=== PATIENT | male | born 1945 | race Caucasian/White ===

== ENCOUNTER 2016-11-20 08:30 | Inpatient (IN) | payer BC, MEDICARE ==
--- NOTE | 2016-11-18 11:37 | HP ---
PATIENT: SHEKHAR MORALES MEDICAL RECORD: [id number] ACCOUNT: [id number] LOCATION:[facility] : 47 ADMISSION DATE: 11/20/16 HISTORY AND PHYSICAL EXAMINATION SHEKHAR Sinha (70yo, M) ID# [id number]. Date/Time11/05/2016 10:91OOZLT99/29/1946[facility] Dept.NPP_[facility] ClinicProviderEDLADONNA HERRMANN MDInsuranceMed Primary: [place]) Insurance # : [id number] Employer Name : UNKNOWN Med Secondary: [place] ([place]) Insurance # : [id number] Employer Name : UNKNOWN Prescription: CMX - Member is eligible. Chief Complaint atherosclerosis of arteries of extremities Patient's Care Team Primary Care Provider: BUFFY GONZALEZ MD: [address] [place] [address], , Emissions Testing Technician: KIMBERLEE COVARRUBIAS MD: [address] [address], , Patient's Pharmacies [id number] ([facility] [address] [facility] [address], , Vitals BP:130/80 sitting R arm 11/05/2016 10:05 am 128/80 sitting L arm 11/05/2016 10:05 amHR:66R/R 11/05/2016 10:05 amHt:6 ft 2 in 11/05/2016 10:03 amWt:200 lbs 11/05/2016 10:03 amBMI:25.7 11/05/2016 10:03 amAllergies Reviewed Allergies NKDAMedications Reviewed Medications acetaminophen 300 mg-codeine 30 mg wzqpes67/21/17 filledCaremarkDULoxetine 30 mg capsule,delayed iskppxb55/18/17 filledCaremarkHYDROcodone 10 mg-acetaminophen 325 mg ihvsaf00/18/17 filledCaremarklisinopril 40 mg irmywq94/18/17 filledCaremarklosartan 50 mg gyzijk34/15/17 filledCaremarklovastatin 10 mg rufwrs54/15/17 filledCaremarkmetoprolol tartrate 25 mg dxmhae31/24/17 filledCaremarkProblems Reviewed Problems Atherosclerosis of arteries of the extremities - Onset: 11/05/2016 Family History Discussed Family History Father- Congestive heart failureMother- Malignant tumor of breastSocial History Discussed Social History Cardiology Family history of heart disease?: Y Smoking Status: Current every day smoker High Cholesterol: Y High blood pressure: Y Exercise level: None Surgical History Reviewed Surgical History Other - PTCA/stent HISTORY AND PHYSICAL [id number] SHEKHAR MORALES Other - back Other - shoulder Other - neck Other - deviated septum Other - 02/10/2012 - Cataracts Past Medical History Discussed Past Medical History Angioplasty (balloon): Y Circulation Problems: Y High Blood Pressure: Y Documents for Discussion N/A Screening None recorded. HPI peripheral arterial disease and claudication ROS Patient reports exercise intolerance but reports no fever, no night sweats, no significant weight gain, and no significant weight loss. He reports muscle aches, muscle weakness, arthralgias/joint pain, and back pain but reports no swelling in the extremities. He reports no dry eyes, no irritation, and no vision change. He reports no difficulty hearing and no ear pain. He reports no frequent nosebleeds and no nose/sinus problems. He reports no sore throat, no bleeding gums, no snoring, no dry mouth, no mouth ulcers, no oral abnormalities, and no teeth problems. He reports no jugular vein distension and no swollen glands. He reports no chest pain, no arm pain on exertion, no shortness of breath when w alking, no shortness of breath when lying down, no palpitations, and no known heart murmur. He reports no cough, no wheezing, no shortness of breath, and no coughing up blood. He reports no abdominal pain, no vomiting, normal appetite, no diarrhea, not vo m iting blood, no nausea, and no constipation. He reports no incontinence, no difficulty urinating, no hematuria, and no increased frequency. He reports no abnormal mole, no jaundice, and no rashes. He reports no loss of consciousness, no weakness, no numbn e ss, no seizures, no dizziness, and no headaches. He reports no depression, no sleep disturbances, feeling safe in relationship, and no alcohol abuse. He reports no fatigue. He reports no swollen glands and no bruising. He reports no runny nose, no sinus p ressure, no itching, no hives, and no frequent sneezing. ROS as noted in the HPI Physical Exam Patient is a 70-year-old male. Constitutional: General Appearance healthy-appearing and thin. Level of Distress NAD. Ambulation ambulating normally. Cardiovascular: Apical Impulse not displaced or no thrill. Heart Auscultation normal s1 and s2; no murmurs, rubs, or gallops; and RRR. Arterial Pulses no abdominal aorta bruits, femoral bruits, or popliteal bruits and 2+ bilateral, carotid 2+ bilateral, femoral 2+ b ilateral, popliteal 2+ bilateral, and dorsalis pedis 2+ bilateral. Edema no edema or varicosities. Lungs: Repiratory Effort no dyspnea. Percussion no hyperresonance or dullness or flatness. Auscultation no wheezing, rhonchi, or rales / crackles and breathing sounds normal, good air movement, and CTA except as noted. Abdomen: Bowl Sounds normal. Inspection and Palpation no tenderness, guarding, masses, or rebound tenderness and soft and non-distended. Liver non-tender and no HISTORY AND PHYSICAL [id number] SHEKHAR MORALES hepatomegaly. Spleen non-tender and no splenomegaly. Hernia none palpable. Musculoskeletal System: Gait And Stance normal gait and stance. Digits and Nails normal nails and no cyanosis. Neurologic: Cranial Nerves grossly intact. Reflexes DTRs 2+ bilaterally throughout. Sensation grossly intact. Lymph Nodes: Lymph Nodes no cervical LAD, supraclavicular LAD, axillary LAD, or inguinal LAD. Eyes: Lids and Conjunctivae no discharge or pallor and non-injected. Pupils PERRLA. Cornea grossly intact. EOM EOMI. Lens clear. Sclerae non-icteric. Neck: Neck no masses or enlarged lymph nodes and supple, trachea midline, and carotid bruits (bilateral). Thyroid no enlargement or nodules and non-tender. Skin: Inspection and Palpation no rash, lesions, ulcers, jaundice, or abnormal nevi. Assessment / Plan severe claudication of the lower extremities left worse than the right 1. Atherosclerosis of arteries of the extremities I70.213: Atherosclerosis of [place] arteries of extremities with intermittent claudication, bilateral legs Discussion Notes patient would like femoral-popliteal artery bypass. I have discussed left femoral-popliteal bypass including the expected benefits and risk which included bleeding, infection, stroke, , and the imponderables. He understands all the above and wishes to proceed with a left femoral-popliteal bypass. Need preoperative carotid Doppler study The preoperative venous mapping on the greater saphenous PRICILA HERRMANN MD at 1137 CC: [id number] DICTATION DATE: 11/05/16 1000 MARKETING TEAM LEAD: MARK 11/12/16 1438 PRE IN [facility] [address] [place] [address]
[2016-11-27 09:08] LABS: BASOPHILS 0.2 % (0-2); EOSINOPHILS 2.5 % (0-7); HEMATOCRIT 35.8 % (42.0-54.0); HEMOGLOBIN 11.2 g/dL (13.5-17.5); IMMATURE GRANULOCYTES 0.6 % (0-5); LYMPHOCYTES 27.6 % (15-50); MCHC 31.3 g/dL (31.0-37.0); MCV 92.7 fL (80.0-100.0); MEAN PLATELET VOLUME 11.2 fL (7.4-10.4); NEUTROPHILS 54.1 % (40-80); PLATELET COUNT 133 10x3/uL (130-400); RBC 3.86 10x6/uL (4.20-6.10); RDW 17.2 % (11.5-14.5); WBC 13.3 10x3/uL (4.8-10.8)
[2016-11-27 09:11] LABS: APPEARANCE CLEAR (CLEAR); BILIRUBIN NEGATIVE (NEGATIVE); COLOR YELLOW (YELLOW); GLUCOSE NEGATIVE (NEGATIVE); KETONE NEGATIVE (NEGATIVE); NITRITE NEGATIVE (NEGATIVE); PROTEIN NEGATIVE (NEGATIVE); SPECIFIC GRAVITY 1.015 (1.005-1.020); UROBILINOGEN NORMAL (NORMAL)
[2016-11-27 09:35] LABS: ALBUMIN 3.1 g/dL (3.4-5.0); ALKALINE PHOSPHATASE 65 U/L (46-116); ALT (SGPT) 21 U/L (10-68); BILIRUBIN - TOTAL 0.29 mg/dL (0.2-1.3); CALC OSMOLALITY 284 mosm/kg (275-300); CALCIUM 8.9 mg/dL (8.5-10.1); CARBON DIOXIDE 28.2 mmol/L (21.0-32.0); CHLORIDE - SERUM 105 mmol/L (98-107); GLUCOSE 94 mg/dL (74-106); POTASSIUM - SERUM 4.2 mmol/L (3.5-5.1); PROTEIN - SERUM 7.3 g/dL (6.4-8.2); SODIUM 142 mmol/L (136-145); UREA NITROGEN 17 mg/dL (7-18); eGFR NON AFRICAN AMERICAN 79 mL/min (90-120)
[2016-11-27 09:36] LABS: APTT 30.8 SECONDS (22.8-39.4); INR 1.07 (0.85-1.17); PROTIME 13.7 SECONDS (11.6-15.0)
[2016-11-27] MEDS ORDERED: PERCOCET 7.5/321 TAB PO (11:10)
[2016-11-27] MEDS ORDERED: METOPROLOL TART25 MG PO (11:10)
[2016-11-27] MEDS ORDERED: LOSARTAN POTASS25 MG PO (11:11)
[2016-11-27] MEDS ORDERED: CENTRUM MEN'S1 EACH PO (11:12)
[2016-11-27] MEDS ORDERED: ASPIRIN325 MG PO (11:13)
[2016-11-27] MEDS ORDERED: LOVASTATIN10 MG PO (11:13)
--- NOTE | 2016-11-27 17:40 | HP ---
PATIENT: SHEKHAR MORALES MEDICAL RECORD: [id number] ACCOUNT: [id number] LOCATION:[facility] : 49 ADMISSION DATE: 11/28/16 HISTORY AND PHYSICAL EXAMINATION SHEKHAR Sinha (70yo, M) ID# [id number]. Date/Time11/27/2016 01:48HCCTS81/29/1946[facility] Dept.NPP_[place] [facility] ClinicProviderEDLADONNA HERRMANN MDInsuranceMed Primary: [place] ([place]) Insurance # : [id number] Employer Name : UNKNOWN Med Secondary: [place] (MEDICARE) Insurance # : [id number] Employer Name : UNKNOWN Prescription: CMX - Member is eligible. Chief Complaint Followup: Atherosclerosis of arteries of the extremities PVD preop for L fem pop bypass had venous mapping and carotid dopplers, BECKMAN appt this am Patient's Care Team Primary Care Provider: BUFFY GONZALEZ MD: [address] [place] [address], , Insurance Verification Representative: KIMBERLEE COVARRUBIAS MD: [id number] [place] [address], , Patient's Pharmacies [id number] ([facility]): [address] [facility] [address], , Vitals BP:168/88 sitting R arm 11/27/2016 01:44 pmBP Cuff Size:adult 11/27/2016 01:44 pmHR:96,irregular 11/27/2016 01:45 pmHt:6 ft 2 in 11/27/2016 01:34 pmWt:200 lbs 11/27/2016 01:45 pmNotes:nervous,tired, give out 11/27/2016 01:45 pmBMI:25.7 11/27/2016 01:45 pmAllergies Reviewed Allergies NKDAMedications Reviewed Medications aspirin 325 mg tablet Take 1 tablet(s) every day by oral route.11/27/16 enteredKathy Wilsonlosartan 50 mg /15/17 filledCaremarklovastatin 10 mg /12/17 filledCaremarkmetoprolol tartrate 25 mg /18/17 filledCaremarkmultivitamin tablet Take by oral route.11/27/16 [facility] Problems Limb pain at rest due to atherosclerosis of [place] artery - Onset: 11/27/2016 Atherosclerosis of arteries of the extremities - Onset: 11/05/2016 Family History Discussed Family History Father- Congestive heart failureMother- Malignant tumor of breastSocial History Discussed Social History Cardiology Family history of heart disease?: Y Smoking Status: Current every day smoker High Cholesterol: Y High blood pressure: Y HISTORY AND PHYSICAL [id number] SHEKHAR MORALES Exercise level: None Surgical History Reviewed Surgical History Other - PTCA/stent Other - back Other - shoulder Other - neck Other - deviated septum Other - 02/10/2012 - Cataracts Past Medical History Discussed Past Medical History Angioplasty (balloon): Y Circulation Problems: Y High Blood Pressure: Y Documents for Discussion N/A Screening None recorded. HPI Peripheral Vascular Disease Reported by patient. Location: calf; foot Quality: aching Severity: moderate Duration: has noted for months Onset/Timing: wakes from sleep Context: during walking; at rest Aggravating Factors: walking; sleeping Associated Symptoms: no weakness; no numbness; no paresthesias; no skin discoloration; no fever; feels cold at times to legs and feet wakes from sleep hurts to walk bilateral chronic total occlusion superficial femoral arteries ROS Patient reports exercise intolerance but reports no fever, no night sweats, no significant weight gain, and no significant weight loss. He reports muscle aches, muscle weakness, arthralgias/joint pain, and back pain but reports no swelling in the extremities. He reports no dry eyes, no irritation, and no vision change. He reports no difficulty hearing and no ear pain. He reports no frequent nosebleeds and no nose/sinus problems. He reports no sore throat, no bl eeding gums, no snoring, no dry mouth, no mouth ulcers, no oral abnormalities, and no teeth problems. He reports no jugular vein distension and no swollen glands. He reports no chest pain, no arm pain on exertion, no shortness of breath when walking, no s h ortness of breath when lying down, no palpitations, and no known heart murmur. He reports no cough, no wheezing, no shortness of breath, and no coughing up blood. He reports no abdominal pain, no vomiting, normal appetite, no diarrhea, not vomiting blood, no nausea, and no constipation. He reports no incontinence, no difficulty urinating, no hematuria, and no increased frequency. He reports no abnormal mole, no jaundice, and no rashes. He reports no loss of consciousness, no weakness, no numbness, no seizu r es, no dizziness, and no headaches. He reports no depression, no sleep disturbances, feeling safe in relationship, and no alcohol abuse. He reports no fatigue. He reports no swollen glands and no bruising. He reports no runny nose, no sinus pressure, no i tching, no hives, and no frequent sneezing. ROS as noted in the HPI HISTORY AND PHYSICAL [id number] SHEKHAR MORALES Physical Exam Patient is a 70-year-old male. Constitutional: General Appearance healthy-appearing and thin. Level of Distress NAD. Ambulation ambulating normally. Cardiovascular: Apical Impulse not displaced or no thrill. Heart Auscultation normal s1 and s2; no murmurs, rubs, or gallops; and RRR. Arterial Pulses no abdominal aorta bruits, femoral bruits, or popliteal bruits and 2+ bilateral, carotid 2+ bilateral, femoral 2+ bilateral, po pliteal 2+ bilateral, and dorsalis pedis 2+ bilateral. Edema no edema or varicosities. Lungs: Repiratory Effort no dyspnea. Percussion no hyperresonance or dullness or flatness. Auscultation no wheezing, rhonchi, or rales / crackles and breathing sounds normal, good air movement, and CTA except as noted. Abdomen: Bowl Sounds normal. Inspection and Palpation no tenderness, guarding, masses, or rebound tenderness and soft and non-distended. Liver non-tender and no hepatomegaly. Spleen non-tender and no splenomegaly. Hernia none palpable. Musculoskeletal System: Gait And Stance normal gait and stance. Digits and Nails normal nails and no cyanosis. Neurologic: Cranial Nerves grossly intact. Reflexes DTRs 2+ bilaterally throughout. Sensation grossly intact. Lymph Nodes: Lymph Nodes no cervical LAD, supraclavicular LAD, axillary LAD, or inguinal LAD. Eyes: Lids and Conjunctivae no discharge or pallor and non-injected. Pupils PERRLA. Cornea grossly intact. EOM EOMI. Lens clear. Sclerae non-icteric. Neck: Neck no masses or enlarged lymph nodes and supple, trachea midline, and carotid bruits (bilateral). Thyroid no enlargement or nodules and non-tender. Skin: Inspection and Palpation no rash, lesions, ulcers, jaundice, or abnormal nevi. Assessment / Plan severe peripheral arterial disease with rest pain Chronic total occlusion and superficial femoral arteries bilaterally 1. Limb pain at rest due to atherosclerosis of [place] artery I70.223: Atherosclerosis of [place] arteries of extremities with rest pain, bilateral legs Discussion Notes discussed the patient's disease process with him and his in detail as well as the alternative methods of treatment. We discussed left in situ graft femoral-popliteal bypass including the expected benefits and risk which include bleeding, infection, stroke, and , and the imponderables. He understands all of the above and wishes to proceed with plan surgery HISTORY AND PHYSICAL [id number] SHEKHAR MORALES EDWARD MD at 1740 CC: [id number] DICTATION DATE: 11/27/16 1330 HOTEL CUSTODIAN: MARK 11/27/16 1449 PRE IN [facility] [address] [place] [address]
[2016-11-28] VITALS (22 sets, daily range): BP systolic 110–149; BP diastolic 53–76; BMI 24.5; BMI 24.7
[2016-11-28 13:09] LABS: HEMATOCRIT 32.5 % (42.0-54.0); HEMOGLOBIN 10.2 g/dL (13.5-17.5)
[2016-11-29] VITALS (24 sets, daily range): BP systolic 113–149; BP diastolic 52–86
[2016-11-29 06:33] LABS: HEMOGLOBIN 9.9 g/dL (13.5-17.5); MCH 28.7 pg (26.0-34.0); MCHC 30.9 g/dL (31.0-37.0); MCV 92.8 fL (80.0-100.0); MEAN PLATELET VOLUME 10.8 fL (7.4-10.4); RBC 3.45 10x6/uL (4.20-6.10); RDW 17.6 % (11.5-14.5); WBC 21.9 10x3/uL (4.8-10.8)
[2016-11-29 06:53] LABS: ALBUMIN 2.8 g/dL (3.4-5.0); ALKALINE PHOSPHATASE 57 U/L (46-116); ALT (SGPT) 17 U/L (10-68); BILIRUBIN - TOTAL 0.53 mg/dL (0.2-1.3); CALC OSMOLALITY 279 mosm/kg (275-300); CARBON DIOXIDE 23.1 mmol/L (21.0-32.0); CHLORIDE - SERUM 106 mmol/L (98-107); CREATININE - SERUM 0.9 mg/dL (0.6-1.3); GLUCOSE 94 mg/dL (74-106); POTASSIUM - SERUM 4.2 mmol/L (3.5-5.1); PROTEIN - SERUM 6.7 g/dL (6.4-8.2); SODIUM 140 mmol/L (136-145); UREA NITROGEN 15 mg/dL (7-18); eGFR NON AFRICAN AMERICAN 89 mL/min (90-120)
[2016-11-30] VITALS (12 sets, daily range): BP systolic 104–139; BP diastolic 39–83
[2016-11-30] MEDS ORDERED: ELIQUIS5 MG PO (13:42)
[2016-11-30] MEDS ORDERED: CORDARONE200 MG PO (13:43)
--- NOTE | 2016-12-01 11:08 | CN ---
PATIENT NAME:HENRIQUE MORALES MEDICAL RECORD: [id number] : 49 LOCATION:[facility] ADMIT DATE: 11/28/16 ACCOUNT: [id number] CONSULTING PHYSICIAN: JAREK PEPE MD REFERRING PHYSICIAN: PRICILA HERRMANN MD DATE OF CONSULTATION: 11/29/2016 HISTORY OF PRESENT ILLNESS: Henrique Morales is a 70-year-old gentleman admitted with peripheral arterial disease with Dr. Herrmann, underwent successful revascularization, had atrial fibrillation/atrial flutter with RVR. In retrospect, he has had this for sometime, typically converts by his review and his 's report with vagal maneuvers. We were asked to see him concerning his cardiovascular status. Currently, intermittently in and out, has been appropriately started on NOAC. PAST MEDICAL HISTORY: Includes; 1. History of peripheral vascular disease as described above. 2. Hypertension. 3. Hyperlipidemia. ALLERGIES: None known. MEDICATIONS: Typically include [place] 7.5/325 every 6 hours p.r.n.; aspirin 81 mg p.o. daily; lovastatin 10 mg p.o. daily; losartan 25 every day; atorvastatin 50 every day; metoprolol 25 b.i.d. SOCIAL HISTORY: , lives here in [place]. He is able to take care of his ADLs, although this has become more difficult given his claudication. REVIEW OF SYSTEMS: The patient reports easy bruising but reports no swollen glands. The patient reports no fever, no night sweats, no significant weight gain, no significant weight loss. No significant exercise tolerance. The patient reports no dry eyes, no irritation, no vision change. Patient reports no difficulty hearing and no ear pain. Patient reports no frequent nose bleeds or nose and sinus problems. Patient reports on arm pain on exertion. No shortness of breath while lying down. No history of heart murmur. Patient reports no cough, no wheezing or coughing up blood. Patient reports no abdominal pain, no vomiting. Normal appetite. No diarrhea and not vomiting blood. No nausea and no constipation. Patient reports no incontinence. No difficulty urinating. No hematuria. No increased frequency. Patient reports no muscle aches. No weakness, no arthralgias, no back pain. No swelling of the extremities. Patient reports no abnormal mole, no jaundice, no rashes. Reports no loss of consciousness. No weakness and no numbness. No seizures, dizziness, or headaches. The patient reports no depression, no sleep disturbance, feeling safe in a relationship and no alcohol abuse. Patient reports on fatigue. Reports no runny nose or sinus pressure. No itching, no hives, and no frequent sneezing. PHYSICAL EXAMINATION: GENERAL: Pleasant gentleman in no acute distress. VITAL SIGNS: Pulse currently 120, appears to be flutter, blood pressure 126/74. HEENT: Normocephalic, atraumatic. NECK: No bruits noted. HEART: Tachycardic, regular. LUNGS: Good air excursion. CONSULT REPORT [id number] CARMENHENRIQUE [place] ABDOMEN: Soft, nontender. EXTREMITIES: Pulses palpable. No edema. IMPRESSION: Atrial fibrillation, exacerbated by current surgery, increased catecholamine drive etc. Already started on NOAC. We will continue amiodarone, may be able to down the road switch him to dozy-mk-eke-pocket given his ease of conversion in the past. TRANSINT:[id number] Voice Confirmation ID: [id number] DOCUMENT ID: [id number] JAREK PEPE MD at 1108 CC: [id number] DICTATION DATE: 11/29/16 120 QUILLER TENDER: 11/29/16 1236 DIS IN 11/30/16 [place] [id number] [place] [address]
--- NOTE | 2016-12-04 15:59 | OP ---
PATIENT NAME: SHEKHAR MORALES MEDICAL RECORD: [id number] :49 [facility] ADMISSION DATE:11/28/16 SURGEON: HENOK HERRMANN MD DATE OF OPERATION: 11/28/2016 SURGEON: Henok Herrmann MD ANESTHESIA: General endotracheal, Dr. Huggins. OPERATION PERFORMED: Left femoral popliteal bypass below the knee utilizing a 6-mm Impra graft. PREOPERATIVE DIAGNOSES: Atherosclerosis, total occlusion of the superficial femoral arteries with rest pain bilaterally. FINDINGS OF THE OPERATION: The left saphenous vein was too small to use for grafting. Therefore, an Impra 6mm beaded graft was utilized. The distal target vessel was satisfactory in caliber, diffusely diseased. The inflow was adequate, although the common femoral artery was severely and diffusely diseased. ESTIMATED BLOOD LOSS: Less than 150 mL. DESCRIPTION OF PROCEDURE: After informed consent, adequate preoperative medication evaluation, the patient was brought to the operating room, placed on the table in the supine position. After induction of general endotracheal anesthesia and application of appropriate monitoring devices, the abdomen, both groin and left leg were prepped and draped in a sterile field, utilizing Betadine scrub, alcohol, and Betadine solution. A Betadine-impregnated drape was also used. An incision was made posterior to the tibia below the knee and dissection carried down to the fascia. Hemostasis maintained with electrocautery. The saphenous vein was dissected free of surrounding tissues and attempts to dilate the vessel were unsuccessful in order to increase the size of the vein itself utilizing an olive-tipped needle. Therefore, this was abandoned. An incision was made in the fascia and dissection carried down to the popliteal fossa. The gastroc was retracted posteriorly and the distal popliteal artery dissected free of surrounding tissues and surrounded with a vessel loop. Attention was then turned toward the left groin. An oblique incision was made at the inguinal ligament. Dissection carried down to the fascia. Hemostasis maintained with electrocautery. The inguinal ligament was elevated and the common femoral artery was dissected proximally and distally. A soft area was identified. A 6 mm beaded graft was then tunneled utilizing a Sanjay tunneler and the distal anastomosis trimmed. The patient was given a calculated dose of heparin. The distal popliteal artery was opened and extended with Main scissors. The anastomosis was accomplished end-to-side utilizing a running 6-0 [place] suture. Attention was then turned toward the left groin. The graft was trimmed. The artery clamped and opened in a soft area. The anastomosis was fashioned utilizing running 6-0 [place] suture. All maneuvers to remove trapped air were performed. The clamps were removed sequentially. The patient was given a calculated dose of protamine to reverse the heparin. Hemostasis was assured. The wounds were irrigated with copious amounts of antibiotic solution and normal saline. The instrument counts and sponge counts were correct times 2. Wounds closed in layers utilizing 2-0 Vicryl on deep subcutaneous tissue, 3-0 Vicryl on superficial subcutaneous tissue, skin in groin approximated with 5-0 subcuticular Monocryl. The incision below the knee OPERATIVE REPORT [id number] SHEKHAR MORALES was closed with skin timbo. Sterile dressings were applied. The patient tolerated the procedure well and was transferred to the CV ICU in satisfactory condition. TRANSINT:[id number] Voice Confirmation ID: [id number] DOCUMENT ID: [id number] HENOK HERRMANN MD at 1559 CC: [id number] DICTATION DATE: 11/28/16 1144 SUPERVISOR SUNGLASSES: 11/28/16 1213 DIS IN 11/30/16 [place] [id number] [place] [address]
== END 2016-11-30 14:51 | disposition home or self-care (01) | DRG 253 ==
LOC: D.SDCHOLD 08:30 → D.CVICU 11-28 05:07 → D.SDCHOLD 11-28 05:07 → D.CVICU 11-28 11:30
PROVIDERS: ADMIT Internal Medicine Cardiovascular Disease
PROC: 041L0JL Bypass Left Femoral Artery to Popliteal Artery with Synthetic Substitute, Open Approach (ICD-10-PCS; principal; 2016-11-28 07:30)
DX: I70.222 Atherosclerosis of native arteries of extremities with rest pain, left leg (principal); I70.92 Chronic total occlusion of artery of the extremities; I10 Essential (primary) hypertension; E78.5 Hyperlipidemia, unspecified; I48.0 Paroxysmal atrial fibrillation

== ENCOUNTER 2017-01-04 13:10 | Inpatient (IN) | payer BC, MEDICARE ==
[~2017-01-04] VITALS: Ht 188 cm; Wt 89.8 kg
[~2017-01-04 13:10] MED LIST: ASPIRIN325 MG PO; CENTRUM MEN'S1 EACH PO; CORDARONE200 MG PO; ELIQUIS5 MG PO; LOSARTAN POTASS25 MG PO; LOVASTATIN10 MG PO; METOPROLOL TART25 MG PO; PERCOCET 7.5/321 TAB PO
[2017-01-04 14:16] LABS: BASOPHILS 0.3 % (0-2); EOSINOPHILS 1.3 % (0-7); HEMATOCRIT 36.7 % (42.0-54.0); HEMOGLOBIN 11.3 g/dL (13.5-17.5); IMMATURE GRANULOCYTES 0.9 % (0-5); LYMPHOCYTES 25.1 % (15-50); MCH 29.8 pg (26.0-34.0); MCHC 30.8 g/dL (31.0-37.0); MCV 96.8 fL (80.0-100.0); MEAN PLATELET VOLUME 11.3 fL (7.4-10.4); MONOCYTES 11.6 % (2-11); NEUTROPHILS 60.8 % (40-80); PLATELET COUNT 169 10x3/uL (130-400); RBC 3.79 10x6/uL (4.20-6.10)
[2017-01-04 14:19] LABS: APTT 37.9 SECONDS (22.8-39.4); INR 1.27 (0.85-1.17); PROTIME 15.8 SECONDS (11.6-15.0)
[2017-01-04 14:26] LABS: ALBUMIN 3.4 g/dL (3.4-5.0); ANION GAP 16.1 mmol/L (8-16); BILIRUBIN - TOTAL 0.33 mg/dL (0.2-1.3); CALCIUM 8.6 mg/dL (8.5-10.1); CARBON DIOXIDE 22.3 mmol/L (21.0-32.0); CREATININE - SERUM 1.2 mg/dL (0.6-1.3); POTASSIUM - SERUM 4.4 mmol/L (3.5-5.1); PROTEIN - SERUM 8.2 g/dL (6.4-8.2)
--- NOTE | 2017-01-04 17:40 | NUR ---
NOTIFIED DR. HERRMANN OF CONSULT, LABS, VITAL SIGNS, SYMPTOMS AND VISUAL CONDITION OF LEFT LEG. NEW ORDERS RECEIVED. CT NOTIFIED. WILL BE UP MOMENTARILY FOR PT. AT BEDSIDE STATES PT HAS NO PERSONAL BELONGINGS AND SHE WILL TAKE HIS CLOTHES HOME WITH HER. OUTLINE DRAWN ON LEFT LEG. URINAL PROVIDED. C/L IN REACH.
[2017-01-04] MEDS ORDERED: BREO ELLIPTA 11 EACH INH (17:43)
[2017-01-04 18:00] VITALS: BP 154/78
--- NOTE | 2017-01-04 18:13 | NUR ---
SPOKE WITH DR. DEE. WILL BE UP TO ASSESS PT SHORTLY.
--- NOTE | 2017-01-04 18:30 | NUR ---
TO C.T. VIA WHEELCHAIR. PAIN REASSESSMENT TIMED FOR [address] AT 1830.
[2017-01-04 19:00] VITALS: BP 166/70
--- NOTE | 2017-01-04 19:08 | NUR ---
SPOKE WITH DR. GARDINER CONCERNING CONSULT. ROOM NUMBER GIVEN.
--- NOTE | 2017-01-04 19:35 | NUR ---
REPORT REC'D AND CARE ASSUMED, REC'D PT RETURNING FROM CT, ALL MONITORS REESTABLISHED, AT BS, LEFT A/C PIV SALINE LOCKED, CM-SB @ 54, BP 165/76, LEFT UPPER INNER THIGH SWOLLEN AND FIRM TO TOUCH, AREA PREVIOUSLY MARKED BY AM SHIFT, FIRMNESS EXTENDS DOWN CALF, PULSES BY DOPPLER, PT ON ROOM AIR ,O2 SAT 95%, PT COMPLAINS OF BEING HUNGRY, INFORMED PT A SANDWICH TRAY WOULD BE PROVIDED CLAUDE, PREFERS TO SIT UP ON SIDE OF BED AT THIS TIME, PT STATES " I CAN'T LAY DOWN RIGHT NOW", BED IN LOW POSITION, CALL LIGHT IN REACH.
--- NOTE | 2017-01-04 19:40 | NUR ---
DR. DEE ON UNIT, NEW ORDERS REC'D.
--- NOTE | 2017-01-04 19:55 | NUR ---
LEAK HUNTER NOTIFIED OF NEED FOR MEDS.
[2017-01-04 20:00] VITALS: BP 143/72; BP 147/71; Ht 188 cm; Wt 89.8 kg
--- NOTE | 2017-01-04 20:30 | NUR ---
SANDWICH TRAY PROVIDED WITH ICE WATER, DILAUDID MANAGER GENERATION SET UP FOR PT USE, PT AT FIRST WANTED TO REFUSE MANAGER GENERATION, STATES " IT IS A WASTE OF TIME, I WILL SET HERE AND HURT" THEY GAVE ME ONE OF THOSE FOR MY SHOULDER YEARS AGO AND IT DIDN'T WORK", EXPLAINED TO PT THE MEDICATION WAS MORE THAN LIKELY DIFFERENT THAN WHAT WAS USED YEARS AGO, PT WILLING TO TRY MANAGER GENERATION AND LET NURSE KNOW IF INEFFECTIVE.
--- NOTE | 2017-01-04 20:45 | NUR ---
PT CONSUMED 75% OF SANDWICH TRAY REMAINS SETTING UP, BLANKET PROVIDED FOR COMPLAINTS OF BEING COLD, REMAINS AT BS, PT DENIES FURTHER NEEDS.
[2017-01-04 21:00] VITALS: BP 118/66
--- NOTE | 2017-01-04 21:30 | NUR ---
EVENING MEDS GIVEN, AMIODARONE HELD AT THIS TIME FOR HR OF 54, BP STABLE, PT LYING IN BED, PROVIDED PILLOWS AND ATTEMPTED TO ELEVATED PT'S LEG PER MD ORDER, PT REFUSES, STATES " MY HURTS TO BAD RIGHT NOW"
[2017-01-04 22:00] VITALS: BP 105/48
[2017-01-04 23:00] VITALS: BP 147/82
--- NOTE | 2017-01-04 23:00 | NUR ---
PT RESTING ON LEFT SIDE IN BED, EYES CLOSED, RESP EVEN AND UNLABORED, VSS, WILL CONT TO MONITOR FOR CHANGES.
[2017-01-05] VITALS (13 sets, daily range): BP systolic 108–179; BP diastolic 46–93
--- NOTE | 2017-01-05 01:40 | NUR ---
PT RESTING ON SIDE EYES CLOSED, RESP EVEN AND UNLABORED, VSS, CM-CAF @ RATE 43 AT TIMES WHILE SLEEPING, WILL MONITOR CLOSELY FOR CHANGES.
--- NOTE | 2017-01-05 02:30 | NUR ---
PT AWAKE, SITTING UP ON SIDE OF BED, BLANKET PROVIDED FOR SHOULDERS, COMPLAINS OF LEFT LEG FEELING TIGHT REMAINS SWOLLEN AND WARM TO THE TOUCH, PT CONTINUES TO USE DILAUDID POWER TONG OPERATOR WHEN ASKED ABOUT PAIN RATING STATES " IT STILL HURTS", ENCOURAGED PT TO ELEVATE LEG, PT SHOOK HEAD NO, CALL LIGHT IN REACH.
--- NOTE | 2017-01-05 03:00 | NUR ---
REASSESSMENT COMPLETE, NO CHANGES FROM PREVIOUS ASSESSMENT, LEFT INNER THIGH REMAINS SWOLLEN AND FIRM TO TOUCH, PT DENIES NEEDS, CALL LIGHT IN REACH.
--- NOTE | 2017-01-05 04:45 | NUR ---
LAB AT FOR AM LAB DRAW.
--- NOTE | 2017-01-05 05:11 | NUR ---
PT SITTING ON SIDE OF BED, REQUESTING COFFEE, COFFEE PROVIDED, VSS, PT DENIES NEEDS.
[2017-01-05 05:17] LABS: BASOPHILS 0.2 % (0-2); HEMATOCRIT 34.7 % (42.0-54.0); HEMOGLOBIN 10.7 g/dL (13.5-17.5); IMMATURE GRANULOCYTES 0.8 % (0-5); LYMPHOCYTES 22.4 % (15-50); MCH 29.4 pg (26.0-34.0); MCHC 30.8 g/dL (31.0-37.0); MCV 95.3 fL (80.0-100.0); MEAN PLATELET VOLUME 10.5 fL (7.4-10.4); MONOCYTES 18.8 % (2-11); NEUTROPHILS 55.8 % (40-80); PLATELET COUNT 152 10x3/uL (130-400); RBC 3.64 10x6/uL (4.20-6.10); RDW 20.4 % (11.5-14.5); WBC 9.9 10x3/uL (4.8-10.8)
[2017-01-05 05:40] LABS: ALBUMIN 3.2 g/dL (3.4-5.0); BILIRUBIN - TOTAL 0.39 mg/dL (0.2-1.3); CALCIUM 8.5 mg/dL (8.5-10.1); CHOL - HDL RATIO 3.4 ratio (2.3-4.9); CREATININE - SERUM 1.1 mg/dL (0.6-1.3); LDL-HDL RATIO 1.8 ratio (1.5-3.5); MAGNESIUM - SERUM 2.1 mg/dL (1.8-2.4); PHOSPHOROUS 4.4 mg/dL (2.5-4.9); PROTEIN - SERUM 7.8 g/dL (6.4-8.2); THYROID STIMULATING HORMONE 14.06 uIU/mL (0.36-3.74)
--- NOTE | 2017-01-05 06:20 | NUR ---
AM MEDS GIVEN ORDERED, PT DENIES FURTHER NEEDS, NO VISITORS IN AT THIS TIME.
--- NOTE | 2017-01-05 07:30 | NUR ---
RECEIVED PT FOR CARE. PT SITTING UP ON SIDE OF BED. CALL LIGHT WITHIN REACH. ASSESSMENT COMPLETED.
--- NOTE | 2017-01-05 09:15 | NUR ---
DR. GARDINER AT BEDSIDE. UPDATED ON PT'S STATUS.
--- NOTE | 2017-01-05 10:10 | NUR ---
* Is the patient Alert and Oriented? Yes 0 * How many steps to enter\exit or inside your home? 4 0 * PCP Dr. Jennifer Butt 0 * Pharmacy [facility] 0 * Preadmission Environment Home with Family 0 * ADLs Independent 0 * Equipment Rolling Walker 0 * List name and contact numbers for known caregivers / representatives who currently or will assist patient after discharge: Spouse - Ginette [phone] 0 * Additional services required to return to the preadmission environment? No 0 * Can the patient safely return to the preadmission environment? Yes 0 * Has this patient been hospitalized within the prior 30 days at any hospital? No Patient Name: SHEKHAR MORALES Admission Status: ER Accout number: [id number] Admission Date: 01-04-2017 : 1945 Admission Diagnosis: Attending: HARSHAD ALARCON Current LOS: 1 Planned Disposition: Home Primary Insurance: [employer] [facility] Discharge Planning Comments: CM met with patient to assess DC plans/needs. Patient states he lives at home with his , Ginette. He reports he is independent with all ADL's & IADL's. He does not use any DME but does have a walker should he need it. He denies having home health services. At dc, he plans to return home with his family. No needs identified or verbalized at this time. CM will follow. Paving Supervisor: Caitlin House
--- NOTE | 2017-01-05 11:46 | NUR ---
AUTOMOBILE MECHANIC RADIATOR AT BEDSIDE.
--- NOTE | 2017-01-05 12:22 | NUR ---
PT REFUSING BED BATH AT THIS TIME. REQUESTING THAT HE TAKE A SHOWER WHEN HE HAS HIS OUT ON THE FLOOR.
--- NOTE | 2017-01-05 12:36 | NUR ---
PT TRANSPORTED BY WHEELCHAIR TO ROOM 2121. PT REPORTS HE WILL CALL HIS AND NOTIFY HER OF NEW ROOM NUMBER. PT HAS CELL PHONE IN HAND. REPORTS ALL CLOTHING IN BAG AND WITH PT DURING TRANSPORT.
--- NOTE | 2017-01-05 12:45 | NUR ---
RECEIVED PT TO ROOM VIA W/C GENERALIZED WEAKNESS RESP UNLABORED SALINE LOCK NOTED TO LAC WITH OCCLUSIVE DRSG INTACT SITE FREE OF REDNESS OR EDEMA TELEMETRY APPLIED SINUS JEANNIE RATE 53
--- NOTE | 2017-01-05 20:36 | NUR ---
PT RESTING IN BED. ALERT/ORIENTED. [place]ING[place]. SALINE LOCK TO LEFT A/C. BEDTIME MEDS GIVEN. IV ABT ZOSYN UP AND INFUSING. INSTRUCTED TO CALL IF HE NEEDS ASSIST TO BATHROOM. CPOC.
--- NOTE | 2017-01-05 23:30 | NUR ---
RESTING WITH NO DISTRESS. 2ND IV ABT UP AND INFUSING. CAF PER TELEMETRY.
--- NOTE | 2017-01-06 00:54 | NUR ---
C/O LEG PAIN. LOWER BACK PAIN, MEDICATED WITH PERCOCETT 1.5 TAB AND WILL MONITOR.
[2017-01-06 00:55] VITALS: BP 138/72
--- NOTE | 2017-01-06 03:11 | NUR ---
PT WITH INCREASE IN HEART RATE TO 130'S ST PER MONITOR. WENT TO ROOM TO CHECK PATIENT AND HE WAS UP IN BATHROOM WITH HIS IV POLE CAUGHT ON THE DOOR. ASSISTED PT BACK TO BED AND HE SAID HE "GOT A BIT FRANTIC" FOR A MINUTE WHEN HIS POLE GOT STUCK. DENIES CHEST PAIN OR DISCOMFORT. AMBULATED BACK TO BED WITH NO ISSUES. TELEMETRY NOW SHOWING 90'S FIB. WILL MONITOR.
[2017-01-06 05:12] LABS: BASOPHILS 0.2 % (0-2); EOSINOPHILS 2.1 % (0-7); HEMATOCRIT 34.2 % (42.0-54.0); HEMOGLOBIN 10.7 g/dL (13.5-17.5); IMMATURE GRANULOCYTES 0.8 % (0-5); LYMPHOCYTES 21.1 % (15-50); MCH 29.6 pg (26.0-34.0); MCHC 31.3 g/dL (31.0-37.0); MCV 94.7 fL (80.0-100.0); MEAN PLATELET VOLUME 10.6 fL (7.4-10.4); NEUTROPHILS 60.8 % (40-80); PLATELET COUNT 177 10x3/uL (130-400); RBC 3.61 10x6/uL (4.20-6.10); RDW 20.2 % (11.5-14.5); WBC 9.1 10x3/uL (4.8-10.8)
[2017-01-06 05:22] LABS: CALC OSMOLALITY 275 mosm/kg (275-300); CALCIUM 8.4 mg/dL (8.5-10.1); CARBON DIOXIDE 24.9 mmol/L (21.0-32.0); CHLORIDE - SERUM 103 mmol/L (98-107); GLUCOSE 98 mg/dL (74-106); POTASSIUM - SERUM 3.6 mmol/L (3.5-5.1); SODIUM 138 mmol/L (136-145); UREA NITROGEN 13 mg/dL (7-18); eGFR NON AFRICAN AMERICAN 79 mL/min (90-120)
[2017-01-06 05:35] VITALS: BP 132/71
--- NOTE | 2017-01-06 06:41 | NUR ---
UP AND AMBULATING ON UNIT. DRINKING COFFEE. AM MEDS GIVEN. PT IN GOOD SPIRITS. FEELS HIS LEFT LEG IS GREATLY IMPROVING WITH DECREASING IN FLUID OVERLOAD. CPOC. REPORT TO JUAN MIGUEL MARTIN.
--- NOTE | 2017-01-06 07:15 | NUR ---
ASSESSMENT COMPLETED. DENIES ANY NEEDS. TELEMERTY SHOWS SR. NPO FOR TEST. IV PATENT TO LEFT FOREARM. WILL MONITOR
[2017-01-06 08:42] VITALS: BP 155/75
--- NOTE | 2017-01-06 09:20 | NUR ---
BACK TO ROOM FROM TINSMITH APPRENTICE. TELEMERTY SHOWS SR V/S STABLE. RIGHT GROIN SOFT WITH DRSG DRY AND INTACT. PPP. IV TO LEFT AC WITH NS. SR UP WITH FAMILY AT BEDSIDE.
--- NOTE | 2017-01-06 11:00 | NUR ---
UP IN BEDSIDE CHAIR WITH FEET ELEVATED.DENIES ANY DISCOMFORT. LEFT LEG WITH LESS EDEMA. WILL MONITOR
[2017-01-06 12:09] VITALS: BP 154/87
[2017-01-06] MEDS ORDERED: BACTRIM DS TABL1 TAB PO (13:31)
--- NOTE | 2017-01-06 13:46 | NUR ---
PT DISCHARGED. IV DCD WITH TIP INTACT. INSTRUCTIONS GIVEN TO PT. TO PRIVATE CAR PER WHEELCHAIR
--- NOTE | 2017-01-20 12:14 | EC ---
PATIENT:SHEKHAR MORALES DATE OF SERVICE: 01/04/17 SEX: M MEDICAL RECORD: [id number] DATE OF : [birth year] LOCATION:D.M2 D.212 AGE OF PATIENT: 71 ADMISSION DATE: 01/04/17 REFERRING PHYSICIAN: INTERPRETING PHYSICIAN: KIMBERLEE SANTIAGO MD ECHOCARDIOGRAM REPORT ECHO CHARGES 4 ECHO COMPLETE CLINICAL DIAGNOSIS: CHF/A-FIB ECHOCARDIOGRAPHIC MEASUREMENTS (adult normal given) AC root (d.<3.7cm) 3.6 cm LV Septum d (<1.2 cm> 1.6 cm Valve Excursion 2.1 cm LV Septum (systole) 2.3 cm Left Atria (s.<4.0cm> 4.1 cm LVPW d(<1.2cm) 1.3 cm RV (d.<2.3cm) 3.5 cm LVPW (sytole) 1.9 cm LV diastole(<5.6CM) 6.1 cm MV E-F(>70mm/sec) cm LV systole 3.4 cm LVOT Diameter 2.0 cm MV exc.(>10mm) cm Est.ejection fraction (50-75%) % Pericardial Effusion N DOPPLER: LVIT cm/sec A 35.0 cm/sec E 130 cm/sec LA cm/sec RVSP 44.0 mmHg LVOT 124 cm/sec AOP1/2T m/s Asc. Ao 163 cm/sec RVOT 69.0 cm/sec RA cm/sec PA 103 cm/sec AV Gradient Peak 11.0 mmHg AV Mean 5.5 mmHg AV Area 2.3 cm MV Gradient Peak 7.7 mmHg MV Mean 1.9 mmHg MV Area cm COMMENTS: Duplex Trimmer: Kathleen ORLANDOOE Card Cleaner: 1 Dr. Santiago TAPE# PACS DATE OF SERVICE: 01/05/2017 DATE OF SERVICE: 01/05/2017 ECHOCARDIOGRAM FINDINGS: 1. Left ventricular chamber size is within normal limits. Left ventricular systolic function is mildly reduced. Overall ejection fraction is 40% to 45%. 2. Left atrium is enlarged at 4.1 cm. Right atrium and right ventricular ECHOCARDIOGRAM REPORT [id number] SHEKHAR MORALES chamber sizes are as well mildly dilated. 3. Valvular structures have normal structure and motion. 4. Doppler interrogation reveals mild mitral regurgitation, mild tricuspid regurgitation, no other valvular insufficiency or stenosis. Pulmonary systolic pressure is estimated at 44 mmHg. 5. No evidence of pericardial effusion or left ventricular thrombus. TRANSINT:[id number] Voice Confirmation ID: [id number] DOCUMENT ID: [id number] KIMBERLEE SANTIAGO MD at 1214 CC: [id number] DICTATION DATE: 01/05/17 1226 MICROFILM EQUIPMENT INSPECTOR: 01/05/17 1303 DIS IN 01/06/17 [address] [place] [address]
--- NOTE | 2017-01-20 12:14 | CN ---
PATIENT NAME:SHEKHAR MORALES MEDICAL RECORD: [id number] : [birth year] LOCATION:[facility] D.2122 ADMIT DATE: 01/04/17 ACCOUNT: [id number] CONSULTING PHYSICIAN: KIMBERLEE GARDINER MD REFERRING PHYSICIAN: HARSHAD DEE MD DATE OF CONSULTATION: 01/05/2017 CARDIOLOGY CONSULT DIAGNOSES: 1. Bradycardia. 2. Paroxysmal atrial fibrillation. 3. Sick sinus syndrome. 4. Anticoagulation, Eliquis, for atrial fibrillation. 5. Peripheral vascular disease. 6. Hypertension. 7. Hyperlipidemia. HISTORY: This is a gentleman who presents with lower extremity pain. He is status post fem-pop few weeks ago on the lower extremity. He began having some pain and hardness of the leg. The leg is not really swollen and not too edematous. CTA showed wide patency of the graft and severe disease distally in both legs. He does have history of atrial fibrillation, this is paroxysmal. He was on Lopressor. He had the addition of Cordarone to his medical regimen on last admission. He has now had some episodes of bradycardia. Heart rate is down into the high 30s; but with this, he is not hemodynamically compromised and is asymptomatic. PHYSICAL EXAMINATION: GENERAL APPEARANCE: Well-nourished, well-developed, appears stated age. Level of distress, comfortable. PSYCHIATRIC: Mental status, alert, normal affect. Orientation, oriented to time, place and person. EYES: Lids and conjunctiva, noninjected. No discharge, no pallor. ENT: Lips, teeth, gums, normal dentition. Oropharynx, no cyanosis, no pallor. NECK: Carotid arteries, bilateral normal upstroke, no bruits, no thrills. JUGULAR VEINS: No jugular venous pressure or distention. CERVICAL LYMPH NODES: Nontender, nonenlarged. THYROID: Not enlarged. Nontender. No nodules. LUNGS: Respiratory effort, unlabored. CHEST: Normal curvature. No thoracic deformity. No chest wall tenderness. Percussion, resonant. Auscultation, clear. No wheezes, no rales, no rhonchi. CARDIOVASCULAR: Precordial exam, nondisplaced. No heaves or pericardial thrills. Rate and rhythm, regular. Heart sounds, normal S1, normal S2. No S3, no gallop, no rub. Systolic murmur, not heard. Diastolic murmur, not heard. EXTREMITIES: No cyanosis, no edema. Peripheral pulses, full and equal in all extremities, except as noted. No bruits appreciated. ABDOMEN: Soft, nondistended. Normal aorta. No bruit. Nontender. No masses. Liver, nontender, no hepatomegaly. Spleen, nontender, no splenomegaly. MUSCULOSKELETAL: No joint tenderness. No joint swelling. No erythema. NEUROLOGICAL: Normal gait, normal strength, normal tone. SKIN: Warm and dry. OVERALL IMPRESSION: He is going in and out of atrial fibrillation. This is not new. We will continue the Cordarone at 200 b.i.d. Discontinue the metoprolol. CONSULT REPORT [id number] SHEKHAR MORALES If this resolves bradycardia, no other workup or treatment is necessary from a cardiac standpoint. Continue the Eliquis anticoagulation. TRANSINT:[id number] Voice Confirmation ID: [id number] DOCUMENT ID: [id number] KIMBERLEE GARDINER MD at 1214 CC: [id number] DICTATION DATE: 01/05/1739 COTTON GRADER: 01/05/17 1159 DIS IN 01/06/17 [id number] [place] [address]
== END 2017-01-06 13:48 | disposition home or self-care (01) | DRG 602 ==
LOC: D.ER 13:10 → D.CVICU 16:03 → D.M2 16:03
PROVIDERS: Emergency Medicine; Family Medicine; ADMIT Family Medicine Adult Medicine
DX: L03.116 Cellulitis of left lower limb (principal); J18.9 Pneumonia, unspecified organism; I48.0 Paroxysmal atrial fibrillation; Z79.01 Long term (current) use of anticoagulants; I70.223 Atherosclerosis of native arteries of extremities with rest pain, bilateral legs; I10 Essential (primary) hypertension; E78.5 Hyperlipidemia, unspecified; Z72.0 Tobacco use

== ENCOUNTER 2017-02-26 06:52 | Outpatient (CLI) | payer BC, MEDICARE ==
[~2017-02-26] VITALS: Ht 188 cm; Wt 90.9 kg
--- NOTE | ~2017-02-26 | HEMODYNAMI ---
PATIENT:SHEKHAR MORALES MEDICAL RECORD: [id number] : [birth year] LOCATION:[facility] ADMISSION DATE: 02/26/17 Generatedon:02/26/201710:39 Patient name: SHEKHAR MORALES Patient #: [id number] SSN: [id number] : 1945 Date of study: 02/26/2017 Page: Of Hemodynamic Procedure Report Patient Data Patient Demographics Procedure consent was obtained First Name: SHEKHAR Gender: Male Last Name: CARMEN : 1945 Middle Initial: M Age: 71 year(s) Patient #: [id number] Race: SSN: [id number] Additional ID: [id number] Contact details [address]: [address] [place] [address] State: [place] City: [place] Zip code: [address] Admission Admission Data Admission Date: 02/26/2017 Admission Time: 6:52 Arrival Date: 02/26/2017 Arrival Time: 9:00 Admit Source: Other Insurance Payor: Private health insurance Lab Results Lab Result Date: 02/26/2017 Lab Result Time: 0:00 Biochemistry Name Units Result Min Max BUN mg/dl 20 --(----)*- 7 18 Creatinine mg/dl 1.2 --(---*)-- 0.6 1.3 CBC Name Units Result Min Max Hemoglobin g/dl 13.4 -*(----)-- 13.5 17.5 Procedure Procedure Types Cath Procedure Diagnostic Procedure PPM/ICD PPM Dual Implant Miscellaneous Procedures Moderate Sedation up to 45 minutes Peripheral Cath Diagnostic Procedure Venography Extremity Left Upper Ext. Venagram Procedure Description Procedure Date Procedure Date: 02/26/2017 Procedure Start Time: 10:03 Procedure Staff Name Function Parker Breaux MD Performing Physician Mary Anne Pineda RT Monitor Alyssa Cavazos RT Scrub Feliberto Alexander RN Nurse Procedure Data Cath Procedure Fluoroscopy Diagnostic fluoroscopy Total fluoroscopy Time: 2.1 time: 2.1 min min Diagnostic fluoroscopy Total fluoroscopy dose: dose: 44.64 mGy 44.64 mGy Contrast Material Contrast Material Type Amount (ml) Visipaque 270 20 Estimated blood loss: 5 ml Procedure Complications No complications Procedure Medications Medication Administration Route Dosage 0.9% NaCl I.V. 100 ml/hr Ancef (1Gm/50ml NS) I.V.P.B 1 g Ancef Irrigation Topical 1 g (1gm/500ml NS) Oxygen NC 2 l/min Lidocaine 1% added to field 20 Lidocaine 1% added to field 20 Versed I.V. 2 mg Fentanyl I.V. 25 mcg Versed I.V. 2 mg Fentanyl I.V. 25 mcg Fentanyl I.V. 50 mcg Versed I.V. 1 mg Amiodarone Loading I.V. drip 150 mg Dose (150mg/100ml D5W) Hemodynamics Rest Heart Rate: 104 (bpm) Snapshots Pre Cath Intra NCS Post Cath Vital Signs Time Heart Resp SPO2 etCO2 NIBP (mmHg) Rhythm Pain Sedation Rate (ipm) (%) (mmHg) Status Level (bpm) 9:50:14 95 16 98 0 142/99(120) A-Flutter 0 (11) 10(A) , No pain 9:54:32 106 42 99 4.5 139/93(119) A-Flutter 0 (11) 10(A) , No pain 9:58:50 93 22 98 24.3 150/99(116) A-Flutter 0 (11) 10(A) , No pain 10:03:02 94 20 98 25.1 142/99(120) A-Flutter 0 (11) 10(A) , No pain 10:07:24 90 17 97 23.5 129/94(110) A-Flutter 0 (11) 10(A) , No pain 10:11:36 103 20 95 2.2 130/93(112) A-Flutter 0 (11) 10(A) , No pain 10:15:48 102 17 94 0 130/93(115) A-Flutter 0 (11) 9(A) , No pain 10:20:00 84 18 94 1.5 137/97(115) A-Flutter 0 (11) 9(A) , No pain 10:24:06 102 24 95 25.1 127/96(113) A-Flutter 0 (11) 10(A) , No pain 10:28:15 104 22 94 22.8 131/96(113) A-Flutter 0 (11) 9(A) , No pain 10:32:25 87 18 95 28.1 135/100(112) A-Flutter 0 (11) 10(A) , No pain Medications Time Medication Route Dose Verified Delivered Reason Notes Effecti veness by by 9:55:04 0.9% NaCl I.V. 100 Feliberto Feliberto Per ml/hr Catherine Alexander physician RN RN 9:55:25 Ancef I.V.P.B 1 g Feliberto Feliberto Per (1Gm/50ml Catherine Alexander physician NS) RN RN 9:56:46 Ancef Topical 1 g Feliberto Feliberto used for Irrigation Lorigan Lorigan procedure (1gm/500ml RN RN NS) 9:57:59 Oxygen NC 2 Feliberto Feliberto Per l/min Catherine Alexander physician RN RN 9:58:16 Lidocaine 1% added 20ml Feliberto Feliberto for local to vial Lorigan Lorigan anesthetic field RN RN 9:58:20 Lidocaine 1% added 20ml Feliberto Feliberto for local to vial Lorigan Lorigan anesthetic field RN RN 10:00:03 Versed I.V. 2 mg Feliberto Feliberto for Lorigan Lorigan sedation RN RN 10:00:41 Versed I.V. 2 mg Feliberto Feliberto for Lorigan Lorigan sedation RN RN 10:05:10 Fentanyl I.V. 25 Feliberto Feliberto for mcg Lorigan Lorigan sedation RN RN 10:05:55 Fentanyl I.V. 25 Feliberto Feliberto for mcg Lorigan Lorigan sedation RN RN 10:26:32 Fentanyl I.V. 50 Feliberto Feliberto for mcg Lorigan Lorigan sedation RN RN 10:30:13 Versed I.V. 1 mg Feliberto Feliberto for Lorigan Lorigan sedation RN RN 10:30:29 Amiodarone I.V. 150 Feliberto Feliberto for Loading Dose drip mg Lorigan Lorigan arrhythmia (150mg/100ml RN RN D5W) Procedure Log Time Note 9:32:22 Feliberto Alexander RN sent for patient. Start room use. 9:32:23 Time tracking: Regular hours 9:32:26 Plan of Care:Hemodynamics will remain stable., Cardiac rhythm will remain stable., Comfort level will be maintained., Respiratory function will remain adequate., Patient/ family verbilizes understanding of procedure., Procedure tolerated without complication., Recovers from procedure without complications.. 9:34:57 Informed consent obtained and on chart 9:35:02 Admit Source: Other 9:35:05 Arrival Date: 02/26/2017 9:00:00 AM 9:35:11 Insurance Payor : Private health insurance 9:36:56 Lab Result : Hemoglobin 13.4 g/dl 9:36:56 Lab Result : Creatinine 1.2 mg/dl 9:36:56 Lab Result : BUN 20 mg/dl 9:38:30 Medtronic Advisa MRI PPM Dual Generator [id number] opened to sterile field. 9:39:37 Medtronic 4074-58 PPM Lead opened to sterile field. 9:40:33 Medtronic 5076-52 PPM Lead opened to sterile field. 9:41:19 Use device set CATH PACK 9:41:34 Use device set NORRED PPM 9:41:41 2.0 Silk 685H opened to sterile field. 9:41:41 2-0 Vicryl Plus [id number] opened to sterile field. 9:41:46 Cautery Tip Business Center Attendant opened to sterile field. 9:41:47 Cautery Pushbutton Pencil opened to sterile field. 9:41:49 Stapler Skin 35W Proximate Plus (PMW35) opened to sterile field. 9:41:51 MICROPUNCTURE 4FR Cook ([id number]) opened to sterile field. 9:42:01 Microlaunchers Cath Pack ([id number]) opened to sterile field. 9:42:27 Patient received from Pre/Post Procedure Room to CCL 3 Alert and oriented. Tansferred to table in Supine position. 9:42:28 Warm blankets applied, and abhilash hugger turned on for patient comfort. 9:42:28 Correct patient and procedure confirmed by team. 9:42:29 ECG and BP/O2 sat monitors applied to patient. 9:49:06 Vital chart was started 9:49:07 Full Disclosure recording started 9:55:04 0.9% NaCl 100 ml/hr I.V. was administered by Feliberto Alexander RN; Per physician; 9:55:25 Ancef (1Gm/50ml NS) 1 g I.V.P.B was administered by Feliberto Alexander RN; Per physician; 9:56:46 Ancef Irrigation (1gm/500ml NS) 1 g Topical was administered by Feliberto Alexander RN; used for procedure; 9:56:59 Baseline sample Acquired. 9:57:15 H&P Date Dictated: 02/23/2017 Within 30 days and on chart., H&P Addendum completed by physician on day of procedure. (MUST COMPLETE FOR ALL OUTPATIENTS). 9:57:17 Pre-procedure instructions explained to patient. 9:57:17 Pre-op teaching completed and patient verbalized understanding. 9:57:19 Family in waiting room. 9:57:20 Patient NPO since Midnight. 9:57:59 Oxygen 2 l/min NC was administered by Feliberto Alexander RN; Per physician; 9:58:00 Is the patient allergic to Iodine/contrast media? No. 9:58:01 Was the patient premedicated? No 9:58:02 Is patient on blood thinner?Yes 9:58:16 Lidocaine 1% 20ml vial added to field was administered by Feliberto Alexander RN; for local anesthetic; 9:58:20 Lidocaine 1% 20ml vial added to field was administered by Feliberto Alexander RN; for local anesthetic; 9:58:26 Eliquis taken last thursday 9:58:28 Patient diabetic? No. 9:58:31 Previous problem with sedation/anesthesia? No ? 9:58:32 Snore? No 9:58:34 Sleep apnea? No 9:58:35 Deviated septum? No 9:58:36 Opens mouth fully? Yes 9:58:36 Sticks out tongue? Yes 9:58:40 Airway obstruction? Yes copd 9:58:49 Dentures? Yes in tight 9:58:52 Pre procedure: right dorsailis pedis pulse 2+ Normal; easily identifiable; not easily obliterated 9:58:55 Pre procedure: left dorsailis pedis pulse 2+ Normal; easily identifiable; not easily obliterated 9:58:56 Patient pain scale 0/10 ?. 9:59:03 IV patent on arrival in right antecubital with 0.9% NaCl at O. 9:59:07 Lab results completed and on chart. 9:59:15 Left chest area was prepped with chlora-prep and draped in sterile fashion 9:59:15 Alarms reviewed by R. N. 9:59:16 Sharps counted by scrub and verified by R.N. 9:59: Physician arrived :59: --------ALL STOP TIME OUT------ 9:59: Final Timeout: patient, procedure, and site verified with staff and physician. All members of the team are in agreement. 9:59:31 Left chest site verified by team. 9:59:34 Physical assessment completed. ASA score P 2 - A patient with mild systemic disease as per Parker Breaux MD. 9:59:37 Sedation plan: IV Moderate Sedation Medication:Versed, Fentanyl 9:59:50 Medtronic veterans employment representative Shahab Graf present for procedure. 10:00:03 Versed 2 mg I.V. was administered by Feliberto Alexander RN; for sedation; 10:00:04 Grounding pad site Right thigh. 10:00:05 Grounding pad site free from injury. 10:00:41 Versed 2 mg I.V. was administered by Feliberto Alexander RN; for sedation; 10:03:04 Pre sharps counted by scrub and verified by RN: Sutures: 9; Sponges: 5; Stick needles: 2; Skin needles: 2; Blade: 1; Cautery: 1 10:03:20 Lidocaine 1% w/epi was administered to left subclavicular area by Parker Breaux MD . 10:03:23 Incision made to left subclavicular area. 10:05:10 Fentanyl 25 mcg I.V. was administered by Feliberto Alexander RN; for sedation; 10:05:55 Fentanyl 25 mcg I.V. was administered by Feliberto Alexander RN; for sedation; 10:07:35 Generator pocket made/opened. 10:13:37 Access obtained with 4Fr micropunture. 10:13:55 Left subclavian vein accessed with 7Fr Peel Away Sheath. 10:15:41 20 ccs of visipaque given by Mary Anne Pineda RT 10:17:05 Ventricular lead inserted and advanced. 10:17:07 Atrial lead inserted and advanced. 10:17:15 Ventricular lead positioned. 10:17:18 Peel-a-way sheath was split and removed. 10:18:15 Ventricular lead attachment was completed with 2-0 vicryl. 10:19:05 Atrial lead positioned. 10:19:09 Peel-a-way sheath was split and removed. 10:19:16 Atrial lead attachment was completed with 2-0 vicryl. 10:20:39 PPM Dual was attached to lead(s) and inserted into pocket. 10:20:42 Device pocket was irrigated with Ancef. 10::32 Fentanyl 50 mcg I.V. was administered by Feliberto Alexander RN; for sedation; 10:26:47 Subcutaneous closure was completed with 2-0 silk. 10::57 Skin closure was completed with 35mm [place]. 10:28:38 Parameters-- Generator: Mode: DDDR. Lower Rate: 60bpm. Upper Rate: 120bpm. 10:29:07 Parameters--Ventricular P/R Wave: 10.5mV. Current: 0.20mA; Threshold: 0.3V; Impedence: 1289OHMS. 10:29:54 Parameters--Atrial P/R Wave: 3.1mV. Current: 0mA; Threshold: FLUTTERV; Impedence: 628OHMS. 10:30:13 Versed 1 mg I.V. was administered by Feliberto Alexander RN; for sedation; 10:30:29 Amiodarone Loading Dose (150mg/100ml D5W) 150 mg I.V. drip was administered by Feliberto Alexander RN; for arrhythmia; 10:30:43 Procedure ended.(Physican Out) 10:30:52 Fluoroscopy time 02.10 minutes. 10::57 Fluoroscopy dose: 44.64 mGy 10:30:57 Flurop Dose total: 44.64 10:31:02 Contrast amount:Visipaque 270 20ml. 10:31:04 Sharps counted by scrub and verified by R.N. 10:31:05 Insertion/operative site no bleeding no hematoma. 10:31:14 Post-op/insertion site Left Chest area dressed using a gauze eyepad and tegaderm. 10:31:24 Post Procedure Pulses reassessed and unchanged 10:31:30 Post procedure rhythm: paced 10:31:32 Estimated blood loss: 5 ml 10:31:34 Post procedure instruction explained to patient.Patient verbalizes understanding. 10:31:34 Patient needs reinforcement of post procedure teaching. 10:32:18 Procedure type changed to Cath procedure, Diagnostic procedure, PPM/ICD, PPM Dual Implant, Miscellaneous Procedures, Moderate Sedation up to 45 minutes, Peripheral Cath Diagnostic Procedure, Venography, Extremity, Left Upper Ext. Venagram 10:32:19 Procedure and supply charges have been captured, reviewed, submitted and are correct. 10:32:24 Procedure Complication : No complications 10:32:27 Vital chart was stopped 10:32:27 See physician's report for complete and final results. 10:32:57 Report given to Pre/Post Procedure Room. 10:32:59 Patient transfered to Pre/Post Procedure Room with Stretcher. 10:33:08 End room use (Document Last) Device Usage Item Name Manufacture Quantity Catalog Hospital Part Current Minimal Lot# / Number Charge Number Stock Stock Serial# Code Medtronic Medtronic 1 [id number] [id number] 5 [id number] Advisa MRI EXP PPM Dual 06-22-18 Generator [id number] Medtronic Medtronic 1 4074-58 022077 [id number] 5 [id number] 4074-58 PPM EXP Lead 11-11-18 Medtronic Medtronic 1 5076-52 365630 232440 5 [id number] 5076-52 PPM EXP Lead 09-08-18 2.0 Silk 685H Ethicon 1 685H 827571 21000 [id number] 5 2-0 Vicryl Ethicon 1 [id number] 711505 544231 127193 5 Plus [id number] Cautery Tip Microtek 1 [id number] 967166 857500 079869 5 Business Center Attendant [employer] Cautery Microtek 1 [id number] 150176 05904 044074 5 Pushbutton [employer] Inc. Pencil Stapler Skin Unknown 1 PMW35 257109 960359 900907 5 35W Proximate Plus (PMW35) MICROPUNCTURE ThoughtLeadr Medical 1 [id number] 194676 552860 [id number] 5 4FR ThoughtLeadr ([id number]) Medline Cath Cardinal 1 [id number] 876577 32317 428141 5 Axentra ([id number]) Signature Audit [place] Stage Time Signature Unsigned Intra-Procedure 02/26/2017 Mary Anne Pineda 10:39:37 AM RT(R) Signatures Monitor : Mary Anne Pineda RT Signature : Date : Time : [address] [place] [address]
[~2017-02-26 06:52] MED LIST changes: +BACTRIM DS TABL1 TAB PO; +BREO ELLIPTA 11 EACH INH
[2017-02-26 07:29] VITALS: Ht 188 cm; Wt 90.9 kg
[2017-02-26 07:36] LABS: HEMATOCRIT 41.3 % (42.0-54.0); HEMOGLOBIN 13.4 g/dL (13.5-17.5); MCH 31.3 pg (26.0-34.0); MCHC 32.4 g/dL (31.0-37.0); MCV 96.5 fL (80.0-100.0); MEAN PLATELET VOLUME 10.8 fL (7.4-10.4); RBC 4.28 10x6/uL (4.20-6.10); RDW 17.1 % (11.5-14.5)
[2017-02-26 07:45] LABS: APTT 32.6 SECONDS (22.8-39.4); INR 1.17 (0.85-1.17); PROTIME 14.5 SECONDS (11.6-15.0)
[2017-02-26 07:55] LABS: ANION GAP 15.2 mmol/L (8-16); CALCIUM 9.4 mg/dL (8.5-10.1); CARBON DIOXIDE 25.3 mmol/L (21.0-32.0); CREATININE - SERUM 1.2 mg/dL (0.6-1.3); POTASSIUM - SERUM 4.5 mmol/L (3.5-5.1)
[2017-02-26] MEDS ORDERED: KEFLEX500 MG PO (10:35)
== END 2017-02-26 16:00 | disposition home or self-care (01) ==
LOC: D.CATH 06:52
PROVIDERS: Internal Medicine Cardiovascular Disease
DX: I49.5 Sick sinus syndrome (principal); Z01.812 Encounter for preprocedural laboratory examination

== ENCOUNTER 2017-03-27 06:00 | Outpatient (CLI) | payer BC, MEDICARE ==
[~2017-03-27] VITALS: Ht 188 cm; Wt 90.9 kg
--- NOTE | ~2017-03-27 | HEMODYNAMI ---
PATIENT:SHEKHAR MORALES MEDICAL RECORD: [id number] : 49 LOCATION:[facility] ADMISSION DATE: 03/27/17 Generatedon:03/27/20178:13 Patient name: SHEKHAR MORALES Patient #: [id number] SSN: [id number] : 1945 Date of study: 03/27/2017 Page: Of Hemodynamic Procedure Report Patient Data Patient Demographics Procedure consent was obtained First Name: SHEKHAR Gender: Male Last Name: CARMEN : 1945 Middle Initial: M Age: 71 year(s) Patient #: [id number] Race: SSN: [id number] Additional ID: [id number] Contact details Address: [address] [place] [address] State: [place] City: [place] Zip code: [address] Past Medical History Allergies: No known allergies Admission Admission Data Admission Date: 03/27/2017 Admission Time: 6:00 Height (in.): 6.2 BSA: 0.36 (m2) Height (cm.): 15.75 BMI: 3658.01 (kg/m2) Weight (lbs.): 200 Weight (kg.): 90.72 Lab Results Lab Result Date: 03/27/2017 Lab Result Time: 0:00 Biochemistry Name Units Result Min Max BUN mg/dl 26 --(----)-* 7 18 Creatinine mg/dl 1.2 --(---*)-- 0.6 1.3 CBC Name Units Result Min Max Hemoglobin g/dl 11.3 *-(----)-- 13.5 17.5 Procedure Procedure Types Cath Procedure Diagnostic Procedure Cardioversion Procedure Description Procedure Date Procedure Date: 03/27/2017 Procedure Start Time: 7:59 Procedure End Time: 8:12 Procedure Staff Name Function Dorene Higuera RT Monitor Parker Breaux MD Performing Physician Eduard Gillis RN Nurse Navdeep Kauffman RN Dye Winch Operator Procedure Data Procedure Complications No complications Procedure Medications Medication Administration Route Dosage Versed I.V. 2 mg Fentanyl I.V. 25 mcg Versed I.V. 2 mg Oxygen NC 2 l/min Hemodynamics Rest BSA: 0.36 (m2) O2 Consumption: Estimated: 43.82 (ml/min) O2 Consumption indexed: Estimated:121.72 (ml/min/m) Heart Rate: 85 (bpm) Snapshots Pre Cath Intra NCS Post Cath Vital Signs Time Heart Resp SPO2 etCO2 NIBP (mmHg) Rhythm Pain Sedation Rate (ipm) (%) (mmHg) Status Level (bpm) 7:55:12 85 29 98 0 149/96(121) A-Fib 0 (11) 10(A) , No pain 7:59:57 76 18 93 0 157/89(109) A-Fib 0 (11) 9(A) , No pain 8:04:37 71 18 100 0 123/80(96) Paced 0 (11) 9(A) , No pain 8:09:16 75 17 97 0 134/80(120) Paced 0 (11) 10(A) , No pain Medications Time Medication Route Dose Verified Delivered Reason Notes Effectivene ss by by 7:56:12 Versed I.V. 2 mg Parker Buffie for Saeid Gillis RN sedation 7:56:18 Fentanyl I.V. 25 Parker Buffie for mcg Saeid Gillis RN sedation 8:00:23 Versed I.V. 2 mg Parker Buffie for Saeid Gillis RN sedation 8:08:44 Oxygen NC 2 Parker Buffie Per l/min Saeid Gillis RN physician Procedure Log Time Note 7:46:01 Patient Height : 6.2 inches 7:46:06 Patient Weight : 200 lbs 7:48:10 Navdeep Kauffman RN sent for patient. Start room use. 7:48:11 Time tracking: Regular hours 7:48:15 Plan of Care:Hemodynamics will remain stable., Cardiac rhythm will remain stable., Comfort level will be maintained., Respiratory function will remain adequate., Patient/ family verbilizes understanding of procedure., Procedure tolerated without complication., Recovers from procedure without complications.. 7:48:20 Signed procedure consent form obtained from patient. 7:49:10 H&P Date Dictated: 03/26/2017 Within 30 days and on chart., H&P Addendum completed by physician on day of procedure. (MUST COMPLETE FOR ALL OUTPATIENTS). 7:49:57 Patient allergic to No known allergies 7:50:59 Patient received from Pre/Post Procedure Room to CCL 1 Alert and oriented. Tansferred to table in Supine position. 7:51:00 Warm blankets applied, and abhilash hugger turned on for patient comfort. 7:51:00 Correct patient and procedure confirmed by team. 7:51:10 ECG and BP/O2 sat monitors applied to patient. 7:51:26 Pre-procedure instructions explained to patient. 7:51:26 Pre-op teaching completed and patient verbalized understanding. 7:51:29 Family in patients room. 7:51:30 Patient NPO since Midnight. 7:51:33 Is the patient allergic to Iodine/contrast media? No. 7:51:34 Is patient on blood thinner?Yes 7:51:39 ACC The patient was administered the following blood thiners within the last 24 hours: Eliquis 7:51:41 Patient diabetic? No. 7:51:43 Previous problem with sedation/anesthesia? No ? 7:51:45 Snore? Yes 7:51:46 Sleep apnea? No 7:51:47 Deviated septum? No 7:51:54 Opens mouth fully? Yes 7:51:55 Sticks out tongue? Yes 7:52:04 Airway obstruction? Yes COPD 7:52:13 Dentures? Yes IN TIGHT 7:52:56 IV patent on arrival in left wrist with 0.9% NaCl at KVO. 7:53:57 Quick Combo opened to sterile field. 7:54:18 Vital chart was started 7:54:52 Lab Result : BUN 26 mg/dl 7:54:52 Lab Result : Hemoglobin 11.3 g/dl 7:54:52 Lab Result : Creatinine 1.2 mg/dl 7:54:55 Lab results completed and on chart. 7:55:00 Baseline sample Acquired. 7:55:05 Rhythm: atrial fibrillation 7:55:06 Full Disclosure recording started 7:55:09 Alarms reviewed by R. N. 7:55:10 Sharps counted by scrub and verified by R.N. 7:55:12 --------ALL STOP TIME OUT------ 7:55:12 Final Timeout: patient, procedure, and site verified with staff and physician. All members of the team are in agreement. 7:55:22 Physical assessment completed. ASA score P 2 - A patient with mild systemic disease as per Parker Breaux MD. 7:55:25 Sedation plan: IV Moderate Sedation Medication:Versed, Fentanyl 7:56:12 Versed 2 mg I.V. was administered by Eduard Gillis RN; for sedation; 7:56:18 Fentanyl 25 mcg I.V. was administered by Eduard Gillis RN; for sedation; 7:56:42 Quick combo pads placed on patients chest and back. 7:59:21 Procedure started. 8:00:23 Versed 2 mg I.V. was administered by Eduard Gillis RN; for sedation; 8:04:48 Defibrillator synced and charged to 200 Joules. 8:04:56 Shock delivered. 8:05:48 Patient cardioverted to paced. 8:07:28 Procedure ended.(Physican Out) 8:07:43 Post-procedure physical assessment completed. ASA score P 2 - A patient with mild systemic disease as per Parker Breaux MD. 8:07:47 Post procedure rhythm: paced 8:07:50 Post procedure instruction explained to patient.Patient verbalizes understanding. 8:07:50 Patient needs reinforcement of post procedure teaching. 8:08:44 Oxygen 2 l/min NC was administered by Eduard Gillis RN; Per physician; 8:11:24 Procedure and supply charges have been captured, reviewed, submitted and are correct. 8:11:26 Procedure Complication : No complications 8:12:29 Vital chart was stopped 8:12:30 See physician's report for complete and final results. 8:12:33 Report given to Pre/Post Procedure Room. 8:12:35 Patient transfered to Pre/Post Procedure Room with Bed. 8:12:39 Procedure ended. 8:12:39 Full Disclosure recording stopped 8:12:43 End room use (Document Last) Device Usage Item Manufacture Quantity Catalog Hospital Part Current Minimal Lot# / Name Number Charge Number Stock Stock Lois eric# Code PointAcross 1 [id number] Combo Signature Audit Harvel Stage Time Signature Unsigned Intra-Procedure 03/27/2017 Dorene Higuera 8:13:44 AM RT(R) Signatures Monitor : Dorene Higuera Signature : RT Date : Time : [address] [place] [address]
[~2017-03-27 06:00] MED LIST changes: +KEFLEX500 MG PO
[2017-03-27 06:45] VITALS: BP 139/87; Ht 188 cm; Wt 90.9 kg
[2017-03-27 06:47] LABS: BASOPHILS 0.2 % (0-2); EOSINOPHILS 1.3 % (0-7); HEMATOCRIT 35.4 % (42.0-54.0); HEMOGLOBIN 11.3 g/dL (13.5-17.5); IMMATURE GRANULOCYTES 4.7 % (0-5); MCH 30.5 pg (26.0-34.0); MCHC 31.9 g/dL (31.0-37.0); MCV 95.4 fL (80.0-100.0); MEAN PLATELET VOLUME 10.9 fL (7.4-10.4); MONOCYTES 18.6 % (2-11); NEUTROPHILS 49.2 % (40-80); PLATELET COUNT 143 10x3/uL (130-400); RBC 3.71 10x6/uL (4.20-6.10); RDW 16.1 % (11.5-14.5); WBC 12.6 10x3/uL (4.8-10.8)
[2017-03-27 06:50] LABS: ANION GAP 16.2 mmol/L (8-16); CALCIUM 8.5 mg/dL (8.5-10.1); CARBON DIOXIDE 22.4 mmol/L (21.0-32.0); CREATININE - SERUM 1.2 mg/dL (0.6-1.3); POTASSIUM - SERUM 4.6 mmol/L (3.5-5.1)
[2017-03-27 07:07] LABS: INR 1.32 (0.85-1.17); PROTIME 15.9 SECONDS (11.6-15.0)
== END 2017-03-27 09:30 | disposition home or self-care (01) ==
LOC: D.CATH 06:00
PROVIDERS: Internal Medicine Cardiovascular Disease
DX: I48.92 Unspecified atrial flutter (principal); I25.10 Atherosclerotic heart disease of native coronary artery without angina pectoris; R06.00 Dyspnea, unspecified; Z01.812 Encounter for preprocedural laboratory examination

== ENCOUNTER → 2017-08-03 09:07 | Outpatient (CLI) | payer BC, MEDICARE ==
[2017-03-27 06:45] VITALS: BMI 25.7
--- NOTE | ~2017-08-03 | EC ---
PATIENT:SHEKHAR MORALES DATE OF SERVICE: 08/03/17 SEX: M MEDICAL RECORD: [id number] DATE OF : 49 LOCATION:[facility] AGE OF PATIENT: 71 ADMISSION DATE: 08/03/17 REFERRING PHYSICIAN: INTERPRETING PHYSICIAN: MARC JAUREGUI MD ECHOCARDIOGRAM REPORT ECHO CHARGES 4 ECHO COMPLETE Date: 08/03 CLINICAL DIAGNOSIS: AFIB/BRADYCARDIA HX OF PACEMAKER ECHOCARDIOGRAPHIC MEASUREMENTS (adult normal given) AC root (d.<3.7cm) 3.8 cm LV Septum d (<1.2 cm> 1.6 cm Valve Excursion 2.0 cm LV Septum (systole) 1.7 cm Left Atria (s.<4.0cm> 3.6 cm LVPW d(<1.2cm) 1.6 cm RV (d.<2.3cm) 5.2 cm LVPW (sytole) 1.7 cm LV diastole(<5.6CM) 5.4 cm MV E-F(>70mm/sec) cm LV systole 3.9 cm LVOT Diameter 2.0 cm MV exc.(>10mm) 1.7 cm Est.ejection fraction (50-75%) % DOPPLER: LVIT cm/sec A 92.0 cm/sec E 138 cm/sec LA cm/sec RVSP 44 mmHg LVOT 109 cm/sec AOP1/2T m/s Asc. Ao 179 cm/sec RVOT 90 cm/sec RA cm/sec PA 117 cm/sec AV Gradient Peak 12.86mmHg AV Mean 5.68 mmHg AV Area 1.9 cm MV Gradient Peak 10.10mmHg MV Mean 3.10 mmHg MV Area cm COMMENTS: House Calls Nurse: Julia VERA Infrastructure Engineer: Rosio Jauregui TAPE# PACS Pericardial Effusion N DATE OF SERVICE: 08/03/2017 PROCEDURE: Transthoracic echocardiogram. FINDINGS: 1. Left ventricle has mild left ventricular hypertrophy. Inflow characteristics are normal. Ejection fraction is 50% to 55%. Left atrium is normal. 2. The aortic valve is normal. 3. The mitral valve has mild mitral regurgitation. ECHOCARDIOGRAM REPORT [id number] SHEKHAR MORALES 4. Tricuspid valve has mild tricuspid regurgitation. 5. The right ventricle is mildly dilated. 6. The pulmonic valve is normal. CONCLUSIONS: The patient has evidence of mild left ventricular hypertrophy, otherwise normal echocardiogram for stated age. TRANSINT:[id number] Voice Confirmation ID: [id number] DOCUMENT ID: [id number] MARC JAUREGUI MD at 0927 CC: [id number] DICTATION DATE: 08/04/17 0824 OPTIMIZATION ANALYST: 08/04/17 1241 DEP CLI 08/03/17 [place] [id number] [place] [address]
== END | disposition home or self-care (01) ==
LOC: D.ECHO 07-30 10:35
DX: I48.91 Unspecified atrial fibrillation (principal); R00.1 Bradycardia, unspecified

== ENCOUNTER 2017-11-19 19:42 | Emergency (ER) | payer BC, MEDICARE ==
[~2017-11-19] VITALS: Ht 188 cm; Wt 90.7 kg
[2017-11-19 19:49] VITALS: Ht 188 cm; Wt 90.7 kg
[2017-11-19] MEDS ORDERED: SLOW RELEASE I160 MG PO (19:52)
[2017-11-19] MEDS ORDERED: LEVOXYL50 MCG PO (19:52)
[2017-11-19 21:20] LABS: HEMATOCRIT 34.6 % (42.0-54.0); HEMOGLOBIN 11.1 g/dL (13.5-17.5); MCH 31.4 pg (26.0-34.0); MCHC 32.1 g/dL (31.0-37.0); MEAN PLATELET VOLUME 11.3 fL (7.4-10.4); PLATELET COUNT 155 10x3/uL (130-400); RBC 3.53 10x6/uL (4.20-6.10); RDW 15.5 % (11.5-14.5); WBC 41.8 10x3/uL (4.8-10.8)
[2017-11-19 21:22] LABS: ALBUMIN 2.7 g/dL (3.4-5.0); ANION GAP 18.5 mmol/L (8-16); BILIRUBIN - TOTAL 0.96 mg/dL (0.2-1.3); CALCIUM 8.7 mg/dL (8.5-10.1); CARBON DIOXIDE 22.5 mmol/L (21.0-32.0); CREATININE - SERUM 1.4 mg/dL (0.6-1.3); PROTEIN - SERUM 7.6 g/dL (6.4-8.2)
[2017-11-19 21:45] LABS: LYMPHOCYTES 5 % (15-50); MONOCYTES 4 % (2-11); NEUTROPHILS 85 % (40-80); PLATELET ESTIMATE NORMAL
[2017-11-19 22:43] LABS: AMYLASE - SERUM 29 U/L (25-115); LIPASE 69 U/L (73-393)
[2017-11-19 23:28] LABS: APPEARANCE CLEAR (CLEAR); BILIRUBIN NEGATIVE (NEGATIVE); COLOR DK YELLOW (YELLOW); GLUCOSE NEGATIVE (NEGATIVE); KETONE NEGATIVE (NEGATIVE); NITRITE NEGATIVE (NEGATIVE); PROTEIN NEGATIVE (NEGATIVE); UROBILINOGEN NORMAL (NORMAL)
[2017-11-20 00:17] VITALS: BP 158/84
== END 2017-11-20 00:21 | disposition home or self-care (01) ==
LOC: D.ER 19:42
PROVIDERS: Emergency Medicine
DX: M54.5 Low back pain (principal); D72.829 Elevated white blood cell count, unspecified; L72.9 Follicular cyst of the skin and subcutaneous tissue, unspecified; I10 Essential (primary) hypertension; Z95.0 Presence of cardiac pacemaker; I48.91 Unspecified atrial fibrillation; I73.9 Peripheral vascular disease, unspecified; I25.10 Atherosclerotic heart disease of native coronary artery without angina pectoris; F17.200 Nicotine dependence, unspecified, uncomplicated

== ENCOUNTER 2017-11-27 17:39 | Inpatient (IN) | payer BC, MEDICARE ==
[2017-11-27] VITALS (21 sets, daily range): BP systolic 75–105; BP diastolic 54–95; BMI 25.1
[~2017-11-27] VITALS: Ht 188 cm; Wt 109.7 kg
--- NOTE | ~2017-11-27 | CN ---
PATIENT NAME:SHEKHAR MORALES MEDICAL RECORD: [id number] : 49 LOCATION:[facility] ADMIT DATE: 11/27/17 ACCOUNT: [id number] CONSULTING PHYSICIAN: MONSE KILPATRICK MD REFERRING PHYSICIAN: JEFFY IVEY MD DATE OF CONSULTATION: 11/29/2017 CONSULT REQUESTING PHYSICIAN: Dr. Gurjit MD REASON FOR CONSULTATION: Acute hypoxic respiratory failure. HISTORY OF PRESENT ILLNESS: Mr. Morales is a 71-year-old gentleman who has a history of chronic lymphocytic leukemia. He was admitted initially to [facility] after a fall. He had a cardiac echo, which showed a valvular vegetation and the blood culture grew Gram-positive cocci. He was transferred for advanced care. The culture grew group B strep and also the wound culture was growing Gram-positive cocci and Group B strep. He was on vancomycin and Zosyn. The Zosyn was discontinued to Rocephin. He is still on vancomycin. Last night, the patient went into respiratory distress and metabolic acidosis with a bicarbonate of 16.1. The patient was put on BiPAP as well as started on bicarb drip. The patient is still very weak and lethargic and having severe dyspnea on mild exertion. REVIEW OF SYSTEMS: The detail is not obtainable. PAST MEDICAL HISTORY: 1. Congestive heart failure. 2. Hypertension. 3. Atrial fibrillation. 4. Heart murmur. 5. Coronary artery disease. 6. Peripheral vascular disease. 7. Possible COPD. PAST SURGICAL HISTORY: 1. He has a cataract surgery. 2. Cervical spine fusion surgery. 3. Lumber shoulder stent placement. 4. Status post pacemaker placement. 5. He has a left leg surgery. ALLERGIES: There are no known drug allergy. MEDICATIONS: [employer] is reviewed. PERSONAL AND SOCIAL HISTORY: The patient is still current every day smoker. He is a nondrinker. FAMILY HISTORY: Noncontributory. PHYSICAL EXAMINATION: GENERAL: Now, the patient is lying comfortably. The patient is in mild distress. He is on BiPAP machine. VITAL SIGNS: The BiPAP setting is 16 x 8, oxygen 40%, heart rate is 74, temperature is 98.5, T-max was 100. CONSULT REPORT [id number] SHEKHAR MORALES HEENT: Conjunctiva is pale. Sclerae are not icteric. NECK: Supple, no JVD. CHEST: There are bilateral crackles. No wheezing. HEART: Rate and rhythm regular, normal sound. There is heart murmur. ABDOMEN: Soft, bowel sounds present. No hepatosplenomegaly. RECTAL: Deferred. EXTREMITIES: No cyanosis, no clubbing, 1+ pedal edema. CENTRAL NERVOUS SYSTEM: The patient is awake and alert. He is hard of hearing. LABORATORY DATA: CBC: The WBC is 84.9, hemoglobin is 8.6, hematocrit 26.7, the platelet count is 100,000. Chemistry: Sodium 142, potassium 4.8, bicarb is 20.5, BUN is 81, creatinine 2.3. ABG: yesterday the pH of 7.45, pCO2 of 22.7, the pO2 is 63, the bicarbonate is 16.1; today the pH is 7.45, the pCO2 is 28, the pO2 is 74, bicarbonate 19.7. IMPRESSION: 1. Acute hypoxic respiratory failure. 2. Acute bacterial endocarditis. 3. Septic shock. 4. Multilobar pneumonia. 5. Chronic lymphocytic leukemia. 6. Ruguj-fe-bvoagmw renal failure. 7. Metabolic acidosis secondary to lactic acidosis. 8. Left leg infection, possible graft infection. 9. Anemia. RECOMMENDATION: 1. Continue vancomycin and Rocephin IV. Discussed with Dr. Costa. 2. BiPAP as required. 3. Bicarbonate drip. 4. Continue pressor to keep the systolic blood pressure above 90. 5. Supplemental oxygen to keep the SpO2 above 92%. 6. Start him on albuterol/ipratropium nebulizer. 7. Brovana/budesonide nebulizer. 8. Start him on small dose of methylprednisolone IV. 9. Follow up labs and chest radiograph. Discussed with Dr. Pratt, Dr. Hartman and Dr. Costa. Discussed with the family. We will intubate if the patient is going to respiratory distress. Dr. Victoria, thank you for involving me in the care of Mr. Morales. TRANSINT:[id number] Voice Confirmation ID: [id number] DOCUMENT ID: [id number] MONSE KILPATRICK MD CC: YOHANA VICTORIA MD [id number] DICTATION DATE: 11/29/171428 OPHTHALMOLOGY ASSISTANT: 11/30/17137 ADM IN [place] [address] [place] [id number]
--- NOTE | ~2017-11-27 | CN ---
PATIENT NAME:SHEKHAR MORALES MEDICAL RECORD: [id number] : 49 LOCATION:[facility] ADMIT DATE: 11/27/17 ACCOUNT: [id number] CONSULTING PHYSICIAN: KIMBERLEE GARDINER MD REFERRING PHYSICIAN: JEFFY IVEY MD DATE OF CONSULTATION: 11/29/2017 DIAGNOSES: 1. Endocarditis. 2. Tachycardia. 3. Atrial fibrillation. 4. Mitral regurgitation. HISTORY OF PRESENT ILLNESS: Mr. Morales was transferred here due to sepsis, felt to be secondary to a leg wound after an arterial revascularization surgery. Echocardiogram shows mitral valve endocarditis. He was with atrial fibrillation and was given Cordarone. Initially, it was changed to sotalol. He is now in sinus rhythm. He does still remain on pressors for his sepsis. PHYSICAL EXAMINATION: GENERAL APPEARANCE: Well-nourished, well-developed, appears stated age. Level of distress, comfortable. PSYCHIATRIC: Mental status, alert, normal affect. Orientation, oriented to time, place and person. EYES: Lids and conjunctiva, noninjected. No discharge, no pallor. ENT: Lips, teeth, gums, normal dentition. Oropharynx, no cyanosis, no pallor. NECK: Carotid arteries, bilateral normal upstroke, no bruits, no thrills. JUGULAR VEINS: No jugular venous pressure or distention. CERVICAL LYMPH NODES: Nontender, nonenlarged. THYROID: Not enlarged. Nontender. No nodules. LUNGS: Respiratory effort, unlabored. CHEST: Normal curvature. No thoracic deformity. No chest wall tenderness. Percussion, resonant. Auscultation, clear. No wheezes, no rales, no rhonchi. CARDIOVASCULAR: Precordial exam, nondisplaced. No heaves or pericardial thrills. Rate and rhythm, regular. Heart sounds, normal S1, normal S2. No S3, no gallop, no rub. Systolic murmur, not heard. Diastolic murmur, not heard. EXTREMITIES: No cyanosis, no edema. Peripheral pulses, full and equal in all extremities, except as noted. No bruits appreciated. ABDOMEN: Soft, nondistended. Normal aorta. No bruit. Nontender. No masses. Liver, nontender, no hepatomegaly. Spleen, nontender, no splenomegaly. MUSCULOSKELETAL: No joint tenderness. No joint swelling. No erythema. NEUROLOGICAL: Normal gait, normal strength, normal tone. SKIN: Warm and dry. OVERALL IMPRESSION: 1. Atrial fibrillation. This is controlled in sinus rhythm on sotalol. We will decrease the dose to 80 mg b.i.d. as he is becoming somewhat bradycardic. 2. Endocarditis. Transesophageal echo was not needed. He clearly has mitral valve endocarditis on transthoracic echo, treat accordingly. TRANSINT:[id number] Voice Confirmation ID: [id number] DOCUMENT ID: [id number] CONSULT REPORT [id number] SHEKHAR MORALES, KIMBERLEE KWOK at 1914 CC: [id number] DICTATION DATE: 11/29/17 1259 OUTSIDE MACHINIST SUPERVISOR: 11/30/17 0013 DIS IN 11/30/17 [facility] [address] [place] [address]
--- NOTE | ~2017-11-27 | EC ---
PATIENT:SHEKHAR MORALES DATE OF SERVICE: 11/27/17 SEX: M MEDICAL RECORD: [id number] DATE OF : 49 LOCATION:[facility] AGE OF PATIENT: 71 ADMISSION DATE: 11/27/17 REFERRING PHYSICIAN: INTERPRETING PHYSICIAN: KIMBERLEE SANTIAGO MD ECHOCARDIOGRAM REPORT ECHO CHARGES 4 ECHO COMPLETE Date: 11/28/17 CLINICAL DIAGNOSIS: ENDOCARDITIS ECHOCARDIOGRAPHIC MEASUREMENTS (adult normal given) AC root (d.<3.7cm) 3.6 cm LV Septum d (<1.2 cm> 1.4 cm Valve Excursion 2.1 cm LV Septum (systole) 2.1 cm Left Atria (s.<4.0cm> 4.3 cm LVPW d(<1.2cm) 1.3 cm RV (d.<2.3cm) 2.8 cm LVPW (sytole) 2.0 cm LV diastole(<5.6CM) 5.3 cm MV E-F(>70mm/sec) cm LV systole 2.8 cm LVOT Diameter 2.0 cm MV exc.(>10mm) cm Est.ejection fraction (50-75%) % DOPPLER: LVIT cm/sec A cm/sec E 160 cm/sec LA cm/sec RVSP 47.0 mmHg LVOT 104 cm/sec AOP1/2T m/s Asc. Ao 176 cm/sec RVOT cm/sec RA cm/sec PA cm/sec AV Gradient Peak 12.4 mmHg AV Mean 6.0 mmHg AV Area 1.8 cm MV Gradient Peak 16.0 mmHg MV Mean 6.8 mmHg MV Area cm COMMENTS: Multifocal Lens Inspector: Kathleen DIAZ [place] [employer] Residential Service Technician: 1 Dr. Santiago TAPE# PACS Pericardial Effusion Y DATE OF SERVICE: 11/28/2017 FINDINGS: 1. Left ventricular chamber size is upper limits of normal. Left ventricular systolic function is mild to moderately reduced. Overall ejection fraction in the 35% range. 2. Left atrium is enlarged at 4.3 cm. Right atrium and right ventricular chamber sizes are upper limits of normal. 3. Valvular structures: Aortic valve is most likely a bicuspid valve that has normal structure and function. No evidence of endocarditis. The mitral valve, ECHOCARDIOGRAM REPORT [id number] SHEKHAR MORALES however, has a vegetation on the posterior leaflet compatible with endocarditis. The remaining valvular structures have normal structure and motion. 4. Doppler interrogation reveals [id number] mitral regurgitation, moderate tricuspid regurgitation. No other valvular insufficiency or stenosis. Pulmonary systolic pressure is estimated 47 mmHg. 5. No evidence of pericardial effusion or left ventricular thrombus. TRANSINT:[id number] Voice Confirmation ID: [id number] DOCUMENT ID: [id number] KIMBERLEE SANTIAGO MD at 7774 CC: [id number] DICTATION DATE: 11/28/17 1147 SLAB WORKER: 11/28/17 1411 DIS IN 11/30/17 [facility] [address] [place] [address]
--- NOTE | ~2017-11-27 | OP ---
PATIENT NAME: SHEKHAR MORALES MEDICAL RECORD: [id number] :49 LOCATION:[facility]14 ADMISSION DATE:11/27/17 SURGEON: ORVILLE LIM MD DATE OF OPERATION: 11/30/2017 PREOPERATIVE DIAGNOSES: 1. Septic shock. 2. Profound hypotension. POSTOPERATIVE DIAGNOSES: 1. Septic shock. 2. Profound hypotension. PROCEDURE: Placement of right common femoral arterial line for hemodynamic monitoring. SURGEON: Orville Lim MD DATA PROCESSING MANAGER: None. BLOOD LOSS: Minimal. ANESTHESIA: Local. OPERATIVE COURSE: The patient was seen in his ICU bed. I was in the intensive care unit. Attempts had been made by Dr. Hinton to place an arterial line. He asked that I try to place the line. I did not feel pulse due to the significant hypotension the patient was having. The right wrist was sterilely prepped and draped. Under ultrasonographic guidance, I was unable to access what appeared to be a very calcified radial artery. I went around to the left side. The volar surface of the left wrist was sterilely prepped and draped. Here again under ultrasonographic guidance, I was able to identify an artery, which appeared to be fairly small and was able to ____ as well. Several attempts were at a retrograde puncture of the artery and this was not successful. I went around to the right side. The right cubital fossa was sterilely prepped and draped. Under ultrasonographic guidance, I was able to identify a brachial artery. Here again it appeared to be fairly calcified. Several attempts were made to percutaneously access the brachial artery in a retrograde fashion. This was not successful. Attention was then turned to the right groin. The right groin was shaved. It was sterilely prepped and draped. Under ultrasonographic guidance, I was able to identify a calcified pulsatile right common femoral artery, which was percutaneously accessed in a retrograde fashion with difficulty. A guidewire passed easily. A small skin marifer was accomplished. An Angiocath type catheter was inserted over the wire. Pulsatile dark blood came out through the Angiocath, which was attached to a flushed transducer tubing. The arterial line was then sutured in place times 3. There was an excellent waveform on the monitor. A sterile dressing was applied. TRANSINT:[id number] Voice Confirmation ID: [id number] DOCUMENT ID: [id number] OPERATIVE REPORT [id number] SHEKHAR MORALES, ORVILLE KWOK at 1409 CC: [id number] DICTATION DATE: 11/30/171753 RN MEDICATION: 12/01/17 0029 DIS IN 11/30/17 [place] [id number] [place] [id number]
[~2017-11-27 17:39] MED LIST changes: +LEVOXYL50 MCG PO; +SLOW RELEASE I160 MG PO
[2017-11-27 21:22] LABS: HEMATOCRIT 26.3 % (42.0-54.0); HEMOGLOBIN 8.6 g/dL (13.5-17.5); MCH 30.5 pg (26.0-34.0); MCHC 32.7 g/dL (31.0-37.0); MCV 93.3 fL (80.0-100.0); MEAN PLATELET VOLUME 11.2 fL (7.4-10.4); PLATELET COUNT 104 10x3/uL (130-400); RBC 2.82 10x6/uL (4.20-6.10); RDW 15.9 % (11.5-14.5); WBC 65.5 10x3/uL (4.8-10.8)
[2017-11-27 21:31] LABS: INR 2.15 (0.85-1.17); PROTIME 23.4 SECONDS (11.6-15.0)
[2017-11-27] MEDS ORDERED: ZANAFLEX2 M1 PO (21:41)
[2017-11-27 21:47] LABS: ALBUMIN 1.5 g/dL (3.4-5.0); ANION GAP 18.9 mmol/L (8-16); BILIRUBIN - TOTAL 2.42 mg/dL (0.2-1.3); CARBON DIOXIDE 20.3 mmol/L (21.0-32.0); CREATININE - SERUM 2.3 mg/dL (0.6-1.3); POTASSIUM - SERUM 4.2 mmol/L (3.5-5.1); PROTEIN - SERUM 5.7 g/dL (6.4-8.2); THYROID STIMULATING HORMONE 1.9 uIU/mL (0.36-3.74)
[2017-11-27 21:54] LABS: LYMPHOCYTES 2 % (15-50); NEUTROPHILS 54 % (40-80); PLATELET ESTIMATE DECREASED; PLATELET MORPHOLOGY NORMAL PLT MORPH
[2017-11-28] VITALS (100 sets, daily range): BP systolic 68–121; BP diastolic 35–97; Ht 188 cm; Wt 109.7 kg
[2017-11-28 02:42] LABS: APPEARANCE HAZY (CLEAR); BACTERIA NONE SEEN /hpf (NONE SEEN); BILIRUBIN NEGATIVE (NEGATIVE); COLOR YELLOW (YELLOW); EPITHELIAL CELLS NSEEN /hpf (0-5); GLUCOSE NEGATIVE (NEGATIVE); KETONE NEGATIVE (NEGATIVE); NITRITE NEGATIVE (NEGATIVE); PROTEIN TRACE mg/dL (NEGATIVE); RED CELLS - URINE 0-5 /hpf (0-5); SPECIFIC GRAVITY 1.015 (1.005-1.020); WHITE CELLS - URINE RARE /hpf (0-5)
[2017-11-28 03:19] LABS: HEMATOCRIT 26.9 % (42.0-54.0); HEMOGLOBIN 8.7 g/dL (13.5-17.5); MCH 30.4 pg (26.0-34.0); MCHC 32.3 g/dL (31.0-37.0); MCV 94.1 fL (80.0-100.0); MEAN PLATELET VOLUME 11.8 fL (7.4-10.4); PLATELET COUNT 95 10x3/uL (130-400); RBC 2.86 10x6/uL (4.20-6.10); RDW 15.9 % (11.5-14.5); WBC 64.4 10x3/uL (4.8-10.8)
[2017-11-28 03:37] LABS: % SATURATION 71 % (15-55); IRON 113 ug/dl (35-150); TOTAL IRON BIND CAPACITY 159 ug/dl (260-445)
[2017-11-28 03:38] LABS: UNSAT IRON BIND CAPACITY 46 ug/dl (150-375)
[2017-11-28 04:08] LABS: ALBUMIN 1.5 g/dL (3.4-5.0); ANION GAP 16.9 mmol/L (8-16); BILIRUBIN - TOTAL 2.68 mg/dL (0.2-1.3); CALCIUM 7.9 mg/dL (8.5-10.1); CARBON DIOXIDE 19.5 mmol/L (21.0-32.0); CREATININE - SERUM 2.3 mg/dL (0.6-1.3); MAGNESIUM - SERUM 2.6 mg/dL (1.8-2.4); PHOSPHOROUS 4.7 mg/dL (2.5-4.9); POTASSIUM - SERUM 4.4 mmol/L (3.5-5.1); PROTEIN - SERUM 5.7 g/dL (6.4-8.2); TROPONIN-I 0.019 ng/mL (0.000-0.060)
[2017-11-28 04:23] LABS: C-REACTIVE PROTEIN 37.9 mg/dL (0.0-0.9)
[2017-11-28 05:05] LABS: LYMPHOCYTES 8 % (15-50); MONOCYTES 1 % (2-11); NEUTROPHILS 66 % (40-80)
[2017-11-28 05:06] LABS: PLATELET ESTIMATE DECREASED
[2017-11-28 09:41] LABS: CHOL - HDL RATIO 6.9 ratio (2.3-4.9); COMPLEMENT C4 23.1 mg/dL (17.4-52.2)
[2017-11-28 13:31] LABS: PROTEIN - URINE 64.3 mg/dL (0.0-11.9)
[2017-11-28 13:49] LABS: COMPLEMENT C4 19.7 mg/dL (17.4-52.2)
[2017-11-28 14:03] LABS: APPEARANCE CLEAR (CLEAR); BILIRUBIN NEGATIVE (NEGATIVE); COLOR YELLOW (YELLOW); GLUCOSE NEGATIVE (NEGATIVE); KETONE NEGATIVE (NEGATIVE); NITRITE NEGATIVE (NEGATIVE); PROTEIN NEGATIVE (NEGATIVE); SPECIFIC GRAVITY 1.015 (1.005-1.020); UROBILINOGEN NORMAL (NORMAL)
[2017-11-28 14:04] LABS: BACTERIA MODERATE /hpf (NONE SEEN); MUCUS <1+ /lpf (NONE SEEN); RED CELLS - URINE OCC /hpf (0-5)
[2017-11-28 14:05] LABS: AMORPHOUS SEDIMENT <1+ /lpf (NONE SEEN)
[2017-11-28 14:50] LABS: ERYTHROCYTE SEDIMENTATION RATE 70 mm/hr (0-20)
[2017-11-29] VITALS (97 sets, daily range): BP systolic 75–129; BP diastolic 55–85
[2017-11-29 03:50] LABS: URIC ACID 7.6 mg/dL (2.6-7.2)
[2017-11-29 04:26] LABS: HEMATOCRIT 26.7 % (42.0-54.0); HEMOGLOBIN 8.6 g/dL (13.5-17.5); MCH 30.5 pg (26.0-34.0); MCHC 32.2 g/dL (31.0-37.0); MCV 94.7 fL (80.0-100.0); MEAN PLATELET VOLUME 11.5 fL (7.4-10.4); PLATELET COUNT 100 10x3/uL (130-400); RBC 2.82 10x6/uL (4.20-6.10); RDW 16.1 % (11.5-14.5); WBC 84.9 10x3/uL (4.8-10.8)
[2017-11-29 04:28] LABS: ANION GAP 19.3 mmol/L (8-16); CALCIUM 7.9 mg/dL (8.5-10.1); CARBON DIOXIDE 20.5 mmol/L (21.0-32.0); CREATININE - SERUM 2.3 mg/dL (0.6-1.3); POTASSIUM - SERUM 4.8 mmol/L (3.5-5.1)
[2017-11-29 04:33] LABS: LYMPHOCYTES 5 % (15-50); MONOCYTES 2 % (2-11); NEUTROPHILS 61 % (40-80); PLATELET ESTIMATE DECREASED
[2017-11-29 05:12] LABS: MAGNESIUM - SERUM 2.8 mg/dL (1.8-2.4); PHOSPHOROUS 4.4 mg/dL (2.5-4.9)
[2017-11-30] VITALS (58 sets, daily range): BP systolic 32–212; BP diastolic 10–156
[2017-11-30 05:06] LABS: HEMATOCRIT 25.4 % (42.0-54.0); HEMOGLOBIN 8.2 g/dL (13.5-17.5); MCH 30.7 pg (26.0-34.0); MCHC 32.3 g/dL (31.0-37.0); MCV 95.1 fL (80.0-100.0); MEAN PLATELET VOLUME 12.4 fL (7.4-10.4); PLATELET COUNT 96 10x3/uL (130-400); RBC 2.67 10x6/uL (4.20-6.10); RDW 16.2 % (11.5-14.5); WBC 79.4 10x3/uL (4.8-10.8)
[2017-11-30 05:18] LABS: ANION GAP 12.8 mmol/L (8-16); CALCIUM 7.6 mg/dL (8.5-10.1); CREATININE - SERUM 2.2 mg/dL (0.6-1.3); POTASSIUM - SERUM 4.6 mmol/L (3.5-5.1)
[2017-11-30 05:19] LABS: CARBON DIOXIDE 27.8 mmol/L (21.0-32.0)
[2017-11-30 06:20] LABS: HYPOCHROMASIA OCC; LYMPHOCYTES 13 % (15-50); MONOCYTES 16 % (2-11); NEUTROPHILS 54 % (40-80); PLATELET ESTIMATE DECREASED; ROULEAUX OCC
[2017-11-30 07:59] LABS: INR 1.82 (0.85-1.17); PROTIME 20.5 SECONDS (11.6-15.0)
[2017-11-30 08:00] LABS: APTT 48.3 SECONDS (22.8-39.4)
[2017-12-01 03:13] LABS: FOLATE (FOLIC ACID) - SERUM >20.0 ng/mL (>3.0)
[2017-12-01 15:25] LABS: ANA REFLEX - DIRECT Negative (Negative)
[2017-12-01 16:14] LABS: UPE RAND - ALBUMIN 13.5 % (()); UPE RAND - ALPHA 1 GLOBULIN 6.6 % (()); UPE RAND - ALPHA 2 GLOBULIN 10.8 % (()); UPE RAND - BETA GLOBULIN 21.9 % (()); UPE RAND - GAMMA GLOBULIN 47.1 % (())
[2017-12-01 17:12] LABS: SPE - A/G RATIO 0.6 (0.7-1.7); SPE - ALBUMIN 1.8 g/dL (2.9-4.4); SPE - ALPHA-1 GLOBULIN 0.4 g/dL (0.0-0.4); SPE - ALPHA-2 GLOBULIN 0.7 g/dL (0.4-1.0); SPE - BETA GLOBULIN 0.7 g/dL (0.7-1.3); SPE - GAMMA GLOBULIN 1.4 g/dL (0.4-1.8); SPE - M-SPIKE Not Observed g/dL (Not Observed); SPE - TOTAL PROTEIN 4.9 g/dL (6.0-8.5)
[2017-12-01 17:12] LABS: SPE - A/G RATIO 0.6 (0.7-1.7); SPE - ALBUMIN 1.8 g/dL (2.9-4.4); SPE - ALPHA-1 GLOBULIN 0.4 g/dL (0.0-0.4); SPE - ALPHA-2 GLOBULIN 0.7 g/dL (0.4-1.0); SPE - BETA GLOBULIN 0.6 g/dL (0.7-1.3); SPE - GAMMA GLOBULIN 1.4 g/dL (0.4-1.8); SPE - M-SPIKE Not Observed g/dL (Not Observed); SPE - TOTAL PROTEIN 4.9 g/dL (6.0-8.5)
[2017-12-02 09:17] LABS: ANTI-GLOMERULAR BASMENT MEMBRN 3 units (0-20)
[2017-12-02 16:13] LABS: ANCA - ANTIMYELOPEROXIDASE <9.0 U/mL (0.0-9.0); ANCA - ANTIPROTEINASE 3 <3.5 U/mL (0.0-3.5); ANCA - ATYPICAL <1:20 titer (Neg:<1:20); ANCA - CYTOPLASMIC <1:20 titer (Neg:<1:20); ANCA - PERINUCLEAR <1:20 titer (Neg:<1:20)
[2017-12-04 14:20] LABS: AEROBE ID Final report (())
[2017-12-04 14:20] LABS: AEROBE ID Final report (())
[2017-12-04 14:20] LABS: AEROBE ID Final report (())
== END 2017-11-30 19:20 | DRG 871 ==
LOC: D.ICU 17:39
PROVIDERS: Family Medicine; General Practice; Internal Medicine Hematology & Oncology; Internal Medicine Nephrology; Student in an Organized Health Care Education/Training Program
PROC: 5A1935Z Respiratory Ventilation, Less than 24 Consecutive Hours (ICD-10-PCS; principal; 2017-11-30)
PROC: 0BH17EZ Insertion of Endotracheal Airway into Trachea, Via Natural or Artificial Opening (ICD-10-PCS; 2017-11-30)
PROC: 05HY33Z Insertion of Infusion Device into Upper Vein, Percutaneous Approach (ICD-10-PCS; 2017-11-30)
PROC: 06HY33Z Insertion of Infusion Device into Lower Vein, Percutaneous Approach (ICD-10-PCS; 2017-11-30)
DX: A41.9 Sepsis, unspecified organism (principal); R65.21 Severe sepsis with septic shock; I33.0 Acute and subacute infective endocarditis; K72.00 Acute and subacute hepatic failure without coma; J18.9 Pneumonia, unspecified organism; J96.01 Acute respiratory failure with hypoxia; I50.21 Acute systolic (congestive) heart failure; N39.0 Urinary tract infection, site not specified; N17.9 Acute kidney failure, unspecified; E87.2 Acidosis; L03.116 Cellulitis of left lower limb; B95.1 Streptococcus, group B, as the cause of diseases classified elsewhere; I48.0 Paroxysmal atrial fibrillation; E66.9 Obesity, unspecified; M51.36 Other intervertebral disc degeneration, lumbar region; I11.0 Hypertensive heart disease with heart failure; F17.200 Nicotine dependence, unspecified, uncomplicated; I70.223 Atherosclerosis of native arteries of extremities with rest pain, bilateral legs; E78.5 Hyperlipidemia, unspecified; I25.10 Atherosclerotic heart disease of native coronary artery without angina pectoris; I95.9 Hypotension, unspecified; D64.9 Anemia, unspecified; Z95.0 Presence of cardiac pacemaker